=== PATIENT | female | born 1940 | race Caucasian/White ===

== ENCOUNTER 2020-05-07 08:58 | Inpatient (IN) | payer BC, MEDICARE ==
[2020-05-07] MEDS ORDERED: SODIUM CHLORIDE 0.9% 500 ML 500 ML IV STA (09:16)
--- NOTE | 2020-05-07 09:19 | ED ---
General Adult HPI - General Source: patient, family, RN notes reviewed Mode of arrival: wheelchair Limitations: physical limitation <Yosi Conde - Last Filed: 05/07/20 11:45> <Molina Nettles - Last Filed: 05/07/20 11:49> - General Chief complaint: Urogenital Stated complaint: weakness/UTI Time Seen by Provider: 05/07/20 09:06 - History of Present Illness Initial comments: This a 79-year-old female presents emergency Department with chief complaint of generalized weakness, urinary tract infection. Patient states that she's had painful urination last several days. Patient does admit that with that she's had extreme weakness the point where she cannot ambulate by herself. Family room states that she's been steady decline over the last several months in which they discussed doing a PEG tube for nutrition but this was delayed secondary to COVID. Patient has lost over 30 pounds due to not eating or drinking. Patient reports that she had a fever last night took acetaminophen. She denies any chest pain or any shortness of breath. Family states that she had a prior EGD which showed esophageal dysfunction. (Yosi Conde) - Related Data Home Medications Medication Instructions Recorded Confirmed Acetaminophen Tab [Tylenol] 500 mg PO DAILY 08/21/18 07/19/19 Cholecalciferol (Vitamin D3) 5,000 units PO DAILY 07/19/19 07/19/19 [Vitamin D3] Mirtazapine [Remeron] 15 mg PO DAILY 07/19/19 07/19/19 metFORMIN HCL [Glucophage] 500 mg PO DAILY 07/19/19 07/19/19 Allergies Allergy/AdvReac Type Severity Reaction Status Date / Time NSAIDS (Non-Steroidal Allergy Severe Swelling Verified 05/07/20 09:04 Anti-Inflamma clindamycin Allergy Unknown Verified 05/07/20 09:04 codeine Allergy Unknown Verified 05/07/20 09:04 sodium hyaluronate Allergy Unknown Uncoded 05/07/20 09:04 Review of Systems ROS Other: All systems not noted in ROS Statement are negative. <Yosi Conde - Last Filed: 05/07/20 11:45> ROS Other: All systems not noted in ROS Statement are negative. <Molina Nettles - Last Filed: 05/07/20 11:49> ROS Statement: Those systems with pertinent positive or pertinent negative responses have been documented in the HPI. Past Medical History Past Medical History: Diabetes Mellitus, GERD/Reflux, Osteoarthritis (OA) Additional Past Medical History / Comment(s): neuropathy, falls, throat strict ure, scoliosis History of Any Multi-Drug Resistant Organisms: None Reported Past Surgical History: Orthopedic Surgery Additional Past Surgical History / Comment(s): knee surgery, back surgery Past Anesthesia/Blood Transfusion Reactions: No Reported Reaction Past Psychological History: No Psychological Hx Reported Past Alcohol Use History: None Reported Past Drug Use History: None Reported <Yosi Conde - Last Filed: 05/07/20 11:45> General Exam Limitations: physical limitation General appearance: alert, in no apparent distress, cachectic Head exam: Present: atraumatic, normocephalic, normal inspection Eye exam: Present: normal appearance, PERRL, EOMI. Absent: scleral icterus, conjunctival injection, periorbital swelling ENT exam: Present: mucous membranes dry. Absent: normal exam, normal oropharynx, mucous membranes moist Neck exam: Present: normal inspection, full ROM. Absent: tenderness, meningismus, lymphadenopathy Respiratory exam: Present: normal lung sounds bilaterally. Absent: respiratory distress, wheezes, rales, rhonchi, stridor Cardiovascular Exam: Present: regular rate, normal rhythm, normal heart sounds. Absent: systolic murmur, diastolic murmur, rubs, gallop, clicks GI/Abdominal exam: Present: soft, normal bowel sounds. Absent: distended, tenderness, guarding, rebound, rigid Back exam: Absent: CVA tenderness (R), CVA tenderness (L) Neurological exam: Present: alert, oriented X3 Skin exam: Present: warm, dry, intact, normal color. Absent: rash <Yosi Conde - Last Filed: 05/07/20 11:45> Course <Molina Nettles - Last Filed: 05/07/20 11:49> Vital Signs 05/07/20 05/07/20 05/07/20 08:59 10:05 11:00 Temperature 97.8 F Pulse Rate 76 66 62 Respiratory 18 18 18 Rate Blood Pressure 126/78 129/67 112/62 O2 Sat by Pulse 97 97 96 Oximetry - Reevaluation(s) Reevaluation #1: 05/07/20 11:48 PA supervision: I did personally evaluate this patient/case patient did present with complaints of generalized weakness and dysuria. Suspicious for UTI. The patient initial workup over the show evidence of dehydration no definite UTI. Patient will be admitted for inpatient treatment she is demonstrating evidence of failure to thrive as an adult. I do agree with the assessment and plan. (Molina Nettles) EKG Findings - EKG Comments: EKG Findings:: EKG performed at 9:19 normal sinus rhythm rate of 78 ME 168 QRS 70 QTC/QTC 392/423 - EKG Results: EKG: interpreted by ERMD <Yosi Conde - Last Filed: 05/07/20 11:45> Medical Decision Making - Lab Data Result diagrams: 05/07/20 09:39 05/07/20 09:39 <Yosi Conde - Last Filed: 05/07/20 11:45> - Lab Data Result diagrams: 05/07/20 09:39 05/07/20 09:39 <Molina Nettles - Last Filed: 05/07/20 11:49> - Medical Decision Making 79-year-old male with family for weakness, concerns for UTI dehydration. Patient is cachectic, or 40 pounds weight loss and decreased oral intake. Patient case discussed with some physician patient will be admitted for placement, evaluation of her PEG tube for nutrition (Yosi Conde) - Lab Data Lab Results 05/07/20 05/07/20 05/07/20 Range/Units 09:39 09:39 09:39 WBC 6.9 (3.8-10.6) k/uL RBC 3.99 (3.80-5.40) m/uL Hgb 12.8 (11.4-16.0) gm/dL Hct 37.3 (34.0-46.0) % MCV 93.4 (80.0-100.0) fL MCH 32.1 (25.0-35.0) pg MCHC 34.3 (31.0-37.0) g/dL RDW 13.1 (11.5-15.5) % Plt Count 201 (150-450) k/uL Neutrophils % 75 % Lymphocytes % 20 % Monocytes % 4 % Eosinophils % 0 % Basophils % 0 % Neutrophils # 5.1 (1.3-7.7) k/uL Lymphocytes # 1.4 (1.0-4.8) k/uL Monocytes # 0.3 (0-1.0) k/uL Eosinophils # 0.0 (0-0.7) k/uL Basophils # 0.0 (0-0.2) k/uL PT 9.9 (9.0-12.0) sec INR 0.9 (<1.2) APTT 24.1 (22.0-30.0) sec Sodium 131 L (137-145) mmol/L Potassium 3.7 (3.5-5.1) mmol/L Chloride 93 L (98-107) mmol/L Carbon Dioxide 31 H (22-30) mmol/L Anion Gap 7 mmol/L BUN 16 (7-17) mg/dL Creatinine 0.25 L (0.52-1.04) mg/dL Est GFR (CKD-EPI)AfAm >90 (>60 ml/min/1.73 sqM) Est GFR (CKD-EPI)NonAf >90 (>60 ml/min/1.73 sqM) Glucose 112 H (74-99) mg/dL Plasma Lactic Acid Angel (0.7-2.0) mmol/L Calcium 9.2 (8.4-10.2) mg/dL Phosphorus 3.7 (2.5-4.5) mg/dL Magnesium 1.9 (1.6-2.3) mg/dL Total Bilirubin 0.5 (0.2-1.3) mg/dL AST 27 (14-36) U/L ALT 22 (4-34) U/L Alkaline Phosphatase 55 (38-126) U/L Creatine Kinase 86 (30-135) U/L Troponin I (0.000-0.034) ng/mL Total Protein 6.7 (6.3-8.2) g/dL Albumin 4.1 (3.5-5.0) g/dL Urine Color Urine Appearance (Clear) Urine pH (5.0-8.0) Ur Specific [place] (1.001-1.035) Urine Protein (Negative) Urine Glucose (UA) (Negative) Urine Ketones (Negative) Urine Blood (Negative) Urine Nitrite (Negative) Urine Bilirubin (Negative) Urine Urobilinogen (<2.0) mg/dL Ur Leukocyte Esterase (Negative) 07/28/20 07/28/20 07/28/20 Range/Units 09:39 09:39 09:49 WBC (3.8-10.6) k/uL RBC (3.80-5.40) m/uL Hgb (11.4-16.0) gm/dL Hct (34.0-46.0) % MCV (80.0-100.0) fL MCH (25.0-35.0) pg MCHC (31.0-37.0) g/dL RDW (11.5-15.5) % Plt Count (150-450) k/uL Neutrophils % % Lymphocytes % % Monocytes % % Eosinophils % % Basophils % % Neutrophils # (1.3-7.7) k/uL Lymphocytes # (1.0-4.8) k/uL Monocytes # (0-1.0) k/uL Eosinophils # (0-0.7) k/uL Basophils # (0-0.2) k/uL PT (9.0-12.0) sec INR (<1.2) APTT (22.0-30.0) sec Sodium (137-145) mmol/L Potassium (3.5-5.1) mmol/L Chloride (98-107) mmol/L Carbon Dioxide (22-30) mmol/L Anion Gap mmol/L BUN (7-17) mg/dL Creatinine (0.52-1.04) mg/dL Est GFR (CKD-EPI)AfAm (>60 ml/min/1.73 sqM) Est GFR (CKD-EPI)NonAf (>60 ml/min/1.73 sqM) Glucose (74-99) mg/dL Plasma Lactic Acid Angel 0.8 (0.7-2.0) mmol/L Calcium (8.4-10.2) mg/dL Phosphorus (2.5-4.5) mg/dL Magnesium (1.6-2.3) mg/dL Total Bilirubin (0.2-1.3) mg/dL AST (14-36) U/L ALT (4-34) U/L Alkaline Phosphatase (38-126) U/L Creatine Kinase (30-135) U/L Troponin I <0.012 (0.000-0.034) ng/mL Total Protein (6.3-8.2) g/dL Albumin (3.5-5.0) g/dL Urine Color Yellow Urine Appearance Clear (Clear) Urine pH 6.5 (5.0-8.0) Ur Specific [place] 1.015 (1.001-1.035) Urine Protein Negative (Negative) Urine Glucose (UA) Negative (Negative) Urine Ketones Negative (Negative) Urine Blood Negative (Negative) Urine Nitrite Negative (Negative) Urine Bilirubin Negative (Negative) Urine Urobilinogen <2.0 (<2.0) mg/dL Ur Leukocyte Esterase Negative (Negative) Disposition <Yosi Conde - Last Filed: 05/07/20 11:45> <Molina Nettles - Last Filed: 05/07/20 11:49> Clinical Impression: Failure to thrive, Cachectic, Dehydration, Esophageal dysfunction Disposition: ADMITTED IP TO THIS [facility] Condition: Fair Referrals: Nonstaff,Physician [Primary Care Provider] - 1-2 days
[2020-05-07 09:55] LABS: Basophils % (A) 0 %; Eosinophils % (A) 0 %; HCT 37.3 % (34.0-46.0); HGB 12.8 gm/dL (11.4-16.0); Lymphocytes # (A) 1.4 k/uL (1.0-4.8); Lymphocytes % (A) 20 %; MCH 32.1 pg (25.0-35.0); MCHC 34.3 g/dL (31.0-37.0); MCV 93.4 fL (80.0-100.0); Mean Platelet Volume 7.3; Monocytes # (A) 0.3 k/uL (0-1.0); Monocytes % (A) 4 %; Neutrophils # (A) 5.1 k/uL (1.3-7.7); Neutrophils % (A) 75 %; Platelet Count 201 k/uL (150-450); RBC 3.99 m/uL (3.80-5.40); RDW 13.1 % (11.5-15.5); WBC 6.9 k/uL (3.8-10.6)
[2020-05-07 10:09] LABS: INR 0.9 (<1.2); Partial Thromboplastin Time 24.1 sec (22.0-30.0); Prothrombin Time 9.9 sec (9.0-12.0)
--- NOTE | 2020-05-07 10:09 | XR ---
EXAMINATION TYPE: XR chest 2V DATE OF EXAM: 05/07/2020 COMPARISON: 08/23/2019 HISTORY: Shortness of breath TECHNIQUE: Frontal and lateral views of the chest are obtained. FINDINGS: Scattered senescent parenchymal changes noted. Hyperinflation compatible with COPD. No evidence for infiltrate. No evidence for atelectasis. Heart size is stable. Mediastinal structures are stable and grossly unremarkable. No evidence for hilar prominence. Degenerative changes dorsal spine. IMPRESSION: 1. No evidence for acute pulmonary disease.
[2020-05-07 10:15] LABS: ALT 22 U/L (4-34); AST 27 U/L (14-36); African American GFR (CKD) >90 (>60 ml/min/1.73 sqM); Albumin 4.1 g/dL (3.5-5.0); Alkaline Phosphatase 55 U/L (38-126); Anion Gap 7 mmol/L; Blood Urea Nitrogen 16 mg/dL (7-17); Calcium 9.2 mg/dL (8.4-10.2); Carbon Dioxide 31 mmol/L (22-30); Chloride 93 mmol/L (98-107); Creatine Kinase 86 U/L (30-135); Glucose 112 mg/dL (74-99); Magnesium 1.9 mg/dL (1.6-2.3); Non-African American GFR(CKD) >90 (>60 ml/min/1.73 sqM); Phosphorus 3.7 mg/dL (2.5-4.5); Potassium 3.7 mmol/L (3.5-5.1); Sodium 131 mmol/L (137-145); Total Bilirubin 0.5 mg/dL (0.2-1.3); Total Protein 6.7 g/dL (6.3-8.2)
[2020-05-07 10:31] LABS: Appearance,Urine Clear (Clear); Bilirubin,Urine Negative (Negative); Blood,Urine Negative (Negative); Color,Urine Yellow; Glucose,Urine (UA) Negative (Negative); Ketones,Urine Negative (Negative); Leukocyte Esterase,Urine Negative (Negative); Nitrite,Urine Negative (Negative); PH, Urine 6.5 (5.0-8.0); Protein,Urine Negative (Negative); Specific Gravity,Urine 1.015 (1.001-1.035); Urobilinogen,Urine <2.0 mg/dL (<2.0)
[2020-05-07] MEDS ORDERED: NALOXONE 0.4 MG/ML 1 ML VIAL IV PRN (11:48)
[2020-05-07] MEDS: SODIUM CHLORIDE 0.9% 1,000 ML IV SCH (14:13)
--- NOTE | 2020-05-07 17:48 | P.HPIM ---
History of Present Illness H&P Date: 05/07/20 Chief Complaint: Dysuria, generalized weakness 79-year-old female with PMH of diabetes mellitus, throat stricture? Presents to the ED for dysuria. Patient reports 3-4 days of burning with urination. Family also reports concerns regarding her nutritional status. Patient reports undergoing EGD under Dr. Moreno in July which showed strictures in her throat? Patient's nutritional status has been declining since her diagnosis. She was scheduled for PEG Placement in December which was delayed due to COVID. Patient denies any headache, lower extremity edema, nausea or vomiting, fever or chills, chest pain, shortness of breath, palpitations, changes in urination or bowel habits. Patient reports a cough that is chronic in nature productive of white mucus. In the ED, her vital signs are stable. CBC was unremarkable. Coagulation panel was unremarkable. CMP showed sodium 131, chloride of 93, bicarbonate of 31 and creatinine of 0.25, glucose of 112. Troponin was less than 0.012, EKG showing normal sinus rhythm. Urinalysis was negative. Chest x- ray showed no acute disease. Patient reports living alone at [facility] in [facility] and is able to take care of her ADLs and IADLs. She ambulates with the aid of a walker. Patient is admitted for failure to thrive. Review of Systems Pertinent positives and negatives as discussed in HPI, a complete review of systems was performed and all other systems are negative. Past Medical History Past Medical History: Diabetes Mellitus, GERD/Reflux, Osteoarthritis (OA) Additional Past Medical History / Comment(s): neuropathy, falls, throat stricture, scoliosis History of Any Multi-Drug Resistant Organisms: None Reported Past Surgical History: Orthopedic Surgery Additional Past Surgical History / Comment(s): knee surgery, back surgery Past Anesthesia/Blood Transfusion Reactions: No Reported Reaction Past Psychological History: No Psychological Hx Reported Smoking Status: Never smoker Past Alcohol Use History: None Reported Past Drug Use History: None Reported Medications and Allergies Home Medications Medication Instructions Recorded Confirmed Type Acetaminophen Tab [Tylenol] 500 mg PO Q6H PRN 08/21/18 05/07/20 History Mirtazapine [Remeron] 7.5 mg PO HS 07/19/19 05/07/20 History Allergies Allergy/AdvReac Type Severity Reaction Status Date / Time NSAIDS (Non-Steroidal Allergy Severe Swelling Verified 05/07/20 12:01 Anti-Inflamma clindamycin Allergy Unknown Verified 05/07/20 12:01 codeine Allergy Unknown Verified 05/07/20 12:01 sodium hyaluronate Allergy Unknown Uncoded 05/07/20 12:01 Physical Exam Vitals: Vital Signs Temp Pulse Pulse Resp BP BP Pulse Ox 05/07/20 15:00 67 16 163/77 90 L 05/07/20 14:13 70 18 05/07/20 12:42 68 18 131/68 95 05/07/20 11:00 62 18 112/62 96 05/07/20 10:05 66 18 129/67 97 05/07/20 08:59 97.8 F 76 18 126/78 97 Intake and Output 05/07/20 05/07/20 05/07/20 06:59 14:59 22:59 Intake Total 890 Balance 890 Intake: Intake, IV Titration 650 Amount Sodium Chloride 0.9% 1, 150 000 ml @ 75 mls/hr IV . [id number] BENNY Rx#:[id number] Sodium Chloride 0.9% 500 500 ml 500 ml @ 999 mls/hr IV .Q31M STA Rx#:[id number] Oral 240 Other: Voiding Method Bedpan # Voids 1 1 Weight 40.823 kg General: [non toxic], [no distress, cachectic], [appears at stated age] Derm: [warm], [dry] Head: [atraumatic], [normocephalic], [symmetric] Eyes: [EOMI], [no lid lag], [anicteric sclera] Mouth: [no lip lesion], [mucus membranes moist] Cardiovascular: [S1S2 reg], [no murmur], [positive DP pulse bilateral], Lungs: [CTA bilateral], [no rhonchi, no rales] , [no accessory muscle use] Abdominal: [soft], [ nontender to palpation], [no guarding], [no appreciable organomegaly] Ext: [no gross muscle atrophy], [no edema], [no contractures] Neuro: [ CN II-XI grossly intact], [3 out of 5 strength bilateral lower extremity, 5 out of 5 throughout otherwise, sensation intact to touch] Psych: [Alert], [oriented], [appropriate affect] Results CBC & Chem 7: 05/07/20 09:39 05/07/20 09:39 Labs: Abnormal Lab Results - Last 24 Hours (Table) 05/07/20 Range/Units 09:39 Sodium 131 L (137-145) mmol/L Chloride 93 L (98-107) mmol/L Carbon Dioxide 31 H (22-30) mmol/L Creatinine 0.25 L (0.52-1.04) mg/dL Glucose 112 H (74-99) mg/dL Thrombosis Risk Factor Assmnt - Choose All That Apply Each Risk Factor Represents 3 Points: Age 75 years or older Thrombosis Risk Factor Assessment Total Risk Factor Score: 3 Thrombosis Risk Factor Assessment Level: Moderate Risk Assessment and Plan Assessment: Failure to thrive secondary to dysphagia Dysuria Diabetes mellitus Hyponatremia Hypochloremic metabolic alkalosis Patient reports generalized weakness that is progressively getting worse due to her nutritional status. Plans: Consult GI for possible PEG tube placement. Follow PT and OT recommendations. Start mirtazapine for appetite stimulant. Consult dietitian. Urinalysis is negative. Plans: Repeat UA tomorrow morning. [id number] glucose 112. Plans: Insulin sliding scale. Regular Accu-Cheks. Hypoglycemic precautions. Likely due to dehydration. Plans: Normal saline at 75 mL per hour. Repeat BMP tomorrow morning. Management as above. DVT prophylaxis: [Heparin] Discussed with: [Patient and daughter] Anticipated discharge: [2-3 days] Anticipated discharge place: [Home versus [facility]] A total of [45] minutes was spent on the care of this complex patient more than 50% of the time was spent in counseling and care coordination. Patient would like to be no code but is open to intubation if necessary. Patient and her daughter Mirna decision maker if she can't make decisions for herself. [Patient admitted for failure to thrive secondary to her dysphagia and nutritional status. GI will be consulted for possible PEG tube placement. Patient is pending clinical improvement. Likely DC in 2-3 days.]
[2020-05-07] MEDS: ACETAMINOPHEN TAB 325 MG TAB PO PRN (21:18)
[2020-05-07] MEDS: HEPARIN SODIUM,PORCINE 5,000 UNIT/ML 1 ML VIAL SQ SCH (21:18)
[2020-05-07] MEDS: MIRTAZAPINE 15 MG TAB PO SCH (21:19)
[2020-05-07] MEDS: INSULIN ASPART (NovoLOG) 100 UNIT/ML VIAL SQ SCH (21:20)
[2020-05-07 21:22] LABS: Glucose,Whole Blood 113 mg/dL (75-99)
[2020-05-08] MEDS: SODIUM CHLORIDE 0.9% 1,000 ML IV SCH ×2 (06:39→13:33)
[2020-05-08 07:12] LABS: Glucose,Whole Blood 96 mg/dL (75-99)
[2020-05-08] MEDS: INSULIN ASPART (NovoLOG) 100 UNIT/ML VIAL SQ SCH ×4 (07:20→20:30)
[2020-05-08 07:40] LABS: Basophils % (A) 1 %; Eosinophils % (A) 1 %; HGB 12.4 gm/dL (11.4-16.0); Lymphocytes # (A) 1.5 k/uL (1.0-4.8); Lymphocytes % (A) 48 %; MCHC 32.6 g/dL (31.0-37.0); MCV 95.2 fL (80.0-100.0); Mean Platelet Volume 7.3; Monocytes # (A) 0.2 k/uL (0-1.0); Monocytes % (A) 7 %; Neutrophils # (A) 1.3 k/uL (1.3-7.7); Neutrophils % (A) 41 %; Platelet Count 182 k/uL (150-450); RDW 12.9 % (11.5-15.5); WBC 3.2 k/uL (3.8-10.6)
[2020-05-08 08:01] LABS: Appearance,Urine Clear (Clear); Color,Urine Colorless; Protein,Urine Negative (Negative); Specific Gravity,Urine 1.005 (1.001-1.035)
[2020-05-08 08:02] LABS: Bilirubin,Urine Negative (Negative); Blood,Urine Negative (Negative); Glucose,Urine (UA) Negative (Negative); Ketones,Urine Negative (Negative); Leukocyte Esterase,Urine Negative (Negative); Nitrite,Urine Negative (Negative); Urobilinogen,Urine <2.0 mg/dL (<2.0)
[2020-05-08 08:09] LABS: ALT 20 U/L (4-34); AST 28 U/L (14-36); African American GFR (CKD) >90 (>60 ml/min/1.73 sqM); Albumin 3.5 g/dL (3.5-5.0); Alkaline Phosphatase 46 U/L (38-126); Anion Gap 5 mmol/L; Blood Urea Nitrogen 8 mg/dL (7-17); Calcium 8.6 mg/dL (8.4-10.2); Carbon Dioxide 28 mmol/L (22-30); Chloride 99 mmol/L (98-107); Glucose 89 mg/dL (74-99); Non-African American GFR(CKD) >90 (>60 ml/min/1.73 sqM); Potassium 4.2 mmol/L (3.5-5.1); Sodium 132 mmol/L (137-145); Total Bilirubin 0.5 mg/dL (0.2-1.3); Total Protein 6.1 g/dL (6.3-8.2)
[2020-05-08] MEDS: HEPARIN SODIUM,PORCINE 5,000 UNIT/ML 1 ML VIAL SQ SCH ×2 (08:28→20:29)
--- NOTE | 2020-05-08 09:24 | CDI ---
Documentation Clarification Form Date: 05/08/2020 08:55:53 AM From: Chelo Interiano RN, CCDS Admit Date: 05/07/2020 11:47:00 AM Patient Name: Darcie Lebron Visit Number: [id number] ATTENTION: The Clinical Documentation Specialists (CDI) and [facility] Coding Staff appreciate your assistance in clarifying documentation. Please respond to the clarification below the line at the bottom and electronically sign. The CDI & [facility] Coding staff will review the response and follow-up if needed. Please note: Queries are made part of the Legal Health Record. If you have any questions, please contact the author of this message via ITS. Dr. Mary Willett Patient has been admitted with a low BMI, failure to thrive, and dehydration with a consult for Peg tube placement. Please prove further clinical specificity to accurately reflect this patient's SOI/ROM. History/Risk Factors: Dysuria, Diabetes mellitus, Hyponatremia, Hypochloremic metabolic alkalosis, neuropathy, falls, throat stricture, scoliosis Clinical Indicators: 05/07 H&P: Cachectic Failure to thrive secondary to dysphagia Patient reports generalized weakness that is progressively getting worse due to her nutritional status. Plans: Consult GI for possible PEG tube placement. Patient admitted for failure to thrive secondary to her dysphagia and nutritional status.GI will be consulted for possible PEG tube placement. 05/07-05/08 Labs: NA+ 131/132, Total Protein 6.7/6.1, Albumin 4.1/.35 Current BMI: 15.9 Treatment: Dietary Consult: Placed 05/07, not yet completed Supplements: Dietary on consult- Surgery on consult for peg tube placement for feedings Lab monitoring: AM daily In your professional opinion, can you please clarify if these findings signify one of the following conditions? Mild Protein-Calorie Malnutrition Moderate Protein-Calorie Malnutrition Severe Protein-Calorie Malnutrition Other condition, please specify Unable to determine (Last Revision: April 2019) severe MTDD
[2020-05-08 10:57] LABS: Glucose,Whole Blood 155 mg/dL (75-99)
--- NOTE | 2020-05-08 13:56 | P.PN ---
Subjective Progress Note Date: 05/08/20 Principal diagnosis: Generalized weakness Patient was seen and examined. No acute events overnight. Patient reports improvement in her dysuria and abdominal discomfort. Patient states that she had a small amount this morning for breakfast she denies any chest pain, shortness breath or palpitations. No nausea or vomiting. No fever or chills. Objective - Vital Signs Vital signs: Vital Signs Temp 97.6 F 05/08/20 12:14 Pulse 63 05/08/20 12:14 Resp 16 05/08/20 12:14 BP 126/73 05/08/20 12:14 Pulse Ox 96 05/08/20 12:14 Intake & Output 05/07/20 05/08/20 05/08/20 18:59 06:59 18:59 Intake Total 890 240 Balance 890 240 Weight 40.823 kg Intake: Intake, IV Titration 650 Amount Sodium Chloride 0.9% 1, 150 000 ml @ 75 mls/hr IV . [id number] BENNY Rx#:[id number] Sodium Chloride 0.9% 500 500 ml 500 ml @ 999 mls/hr IV .Q31M STA Rx#:[id number] Oral 240 240 Other: Voiding Method Bedpan Bedpan Bedpan # Voids 1 1 1 - Exam General: [non toxic], [no distress, cachectic], [appears at stated age] Derm: [warm], [dry] Head: [atraumatic], [normocephalic], [symmetric] Eyes: [EOMI], [no lid lag], [anicteric sclera] Mouth: [no lip lesion], [mucus membranes moist] Cardiovascular: [S1S2 reg], [no murmur], [positive DP pulse bilateral], Lungs: [CTA bilateral], [no rhonchi, no rales] , [no accessory muscle use] Abdominal: [soft], [ nontender to palpation], [no guarding], [no appreciable organomegaly] Ext: [no gross muscle atrophy], [no edema], [no contractures] Neuro: [ CN II-XI grossly intact], [3 out of 5 strength bilateral lower extremity, 5 out of 5 throughout otherwise, sensation intact to touch] Psych: [Alert], [oriented], [appropriate affect] - Labs CBC & Chem 7: 05/08/20 07:04 05/08/20 07:04 Labs: Abnormal Lab Results - Last 24 Hours (Table) 05/07/20 05/08/20 05/08/20 Range/Units 21:12 07:04 07:04 WBC 3.2 L (3.8-10.6) k/uL Sodium 132 L (137-145) mmol/L Creatinine 0.18 L (0.52-1.04) mg/dL POC Glucose (mg/dL) 113 H (75-99) mg/dL Total Protein 6.1 L (6.3-8.2) g/dL 05/08/20 Range/Units 10:56 WBC (3.8-10.6) k/uL Sodium (137-145) mmol/L Creatinine (0.52-1.04) mg/dL POC Glucose (mg/dL) 155 H (75-99) mg/dL Total Protein (6.3-8.2) g/dL Assessment and Plan Assessment: Failure to thrive secondary to dysphagia Dysuria Diabetes mellitus Hyponatremia Resolved: Hypochloremic metabolic alkalosis Patient reports generalized weakness that is progressively getting worse due to her nutritional status. Plans: Consult GI for possible PEG tube placement. Follow PT and OT recommendations. Start mirtazapine for appetite stimulant. Consult dietitian. NDD2 diet for now. Aspiration precautions. Speech consult for swallow eval. Urinalysis is negative x 2. Plans: Improving. Will continue to monitor. [id number] glucose 155. Plans: Insulin sliding scale. Regular Accu-Cheks. Hypoglycemic precautions. Likely due to dehydration. Slowly improving. Plans: Normal saline at 75 mL per hour. Repeat BMP tomorrow morning. Patient would like to be no code but is open to intubation if necessary. Patient and her daughter Mirna decision maker if she can't make decisions for herself. [Patient admitted for failure to thrive secondary to her dysphagia and nutritional status. GI will be consulted for possible PEG tube placement on Wednesday if patient agreeable. Patient is pending clinical improvement. Likely DC in 2-3 days.]
[2020-05-08 17:18] LABS: Glucose,Whole Blood 89 mg/dL (75-99)
[2020-05-08 20:02] LABS: Glucose,Whole Blood 137 mg/dL (75-99)
[2020-05-08] MEDS: MIRTAZAPINE 15 MG TAB PO SCH (20:29)
[2020-05-09] MEDS: SODIUM CHLORIDE 0.9% 1,000 ML IV SCH ×2 (03:56→19:49)
[2020-05-09 06:58] LABS: Glucose,Whole Blood 92 mg/dL (75-99)
--- NOTE | 2020-05-09 07:15 | P.CONS ---
History of Present Illness - Reason for Consult Consult date: 05/08/20 Dysphagia Requesting physician: Mary Willett - Chief Complaint Burning with urination - History of Present Illness 79-year-old female with multiple medical comorbidities including diabetes mellitus, osteoarthritis and dysphagia who presented to the hospital due to co mplaints of painful urination. The patient had been reporting 3-4 days of burning with urination prior to presentation. Consult was placed for concerns over poor oral intake and weight loss. Previously the patient had an EGD on 07/27/2019 suggestive of early grade a esophagitis and cricopharyngeal dysphagia. At that time discussion was for possible PEG tube however the patient was unsure if she'll be able to receive the appropriate care that her living facility. She was going to contemplate the PEG tube placement, however because of the breakouts of the novel Calderon virus the patient did not follow- up. She reports trying to eat small frequent meals however has been unable to gain weight and is interested in PEG tube at this time . Review of Systems REVIEW OF SYSTEMS: CONSTITUTIONAL: Denies any fevers, chills, but she does report fatigue and significant weight loss secondary to poor oral intake. CARDIOVASCULAR: Denies any chest pain, palpitations high or low blood pressures RESPIRATORY: Denies any shortness of breath, hemoptysis or cough. GENITOURINARY: Denies any hematuria but does report burning with urination prior to presentation. MUSCULOSKELETAL: No weakness reported. SKIN: Denies any new rashes or lesions, jaundice or pallor. PSYCHIATRIC: Denies any depression or anxiety. NEUROLOGY: Denies headache, denies any new focal deficits. EARS/NOSE/THROAT: No recent hearing change, congestion, nasal discharge or sore throat. EYES: No pain in eyes, discharge or change in vision. GASTROINTESTINAL: As per HPI. Past Medical History Past Medical History: Diabetes Mellitus, GERD/Reflux, Osteoarthritis (OA) Additional Past Medical History / Comment(s): neuropathy, falls, throat stricture, scoliosis History of Any Multi-Drug Resistant Organisms: None Reported Past Surgical History: Orthopedic Surgery Additional Past Surgical History / Comment(s): knee surgery, back surgery Past Anesthesia/Blood Transfusion Reactions: No Reported Reaction Past Psychological History: No Psychological Hx Reported Smoking Status: Never smoker Past Alcohol Use History: None Reported Past Drug Use History: None Reported Additional History: Family history: Reviewed with the patient and noncontributory to current medical presentation. Medications and Allergies Home Medications Medication Instructions Recorded Confirmed Type Acetaminophen Tab [Tylenol] 500 mg PO Q6H PRN 08/21/18 05/07/20 History Mirtazapine [Remeron] 7.5 mg PO HS 07/19/19 05/07/20 History Allergies Allergy/AdvReac Type Severity Reaction Status Date / Time NSAIDS (Non-Steroidal Allergy Severe Swelling Verified 05/07/20 12:01 Anti-Inflamma clindamycin Allergy Unknown Verified 05/07/20 12:01 codeine Allergy Unknown Verified 05/07/20 12:01 sodium hyaluronate Allergy Unknown Uncoded 05/07/20 12:01 Physical Exam Vitals: Vital Signs Temp Pulse Resp BP Pulse Ox 05/08/20 12:14 97.6 F 63 16 126/73 96 05/08/20 08:00 62 18 05/08/20 04:50 97.3 F L 60 18 135/71 94 L 05/07/20 19:33 98.1 F 63 18 120/68 96 05/07/20 16:00 67 16 05/07/20 15:00 67 16 163/77 90 L Intake and Output 05/07/20 05/08/20 05/08/20 22:59 06:59 14:59 Intake Total 1320 Balance 1320 Intake: Intake, IV Titration 600 Amount Sodium Chloride 0.9% 1, 600 000 ml @ 75 mls/hr IV . [id number] [facility] Rx#:[id number] Oral 720 Other: Voiding Method Bedpan Bedpan Bedpan # Voids 1 1 3 On physical examination, patient appears comfortable in no apparent distress. HEAD: Normocephalic, atraumatic. EYES: No scleral icterus. No conjunctival injection. MOUTH: No lesions, tongue midline. NECK: Trachea midline, no gross abnormalities. CHEST: Clear to auscultation with no wheezing or rhonchi appreciated. HEART: Regular rate and rhythm. ABDOMEN: Soft, thin. Bowel sounds are positive. No organomegaly. No guarding or rigidity. EXTREMITIES: No pedal edema. SKIN: No rashes, no jaundice. NEUROLOGIC: Alert and oriented x3. No focal deficits. Results CBC & Chem 7: 05/08/20 07:04 05/08/20 07:04 Labs: Abnormal Lab Results - Last 24 Hours (Table) 05/07/20 05/08/20 05/08/20 Range/Units 21:12 07:04 07:04 WBC 3.2 L (3.8-10.6) k/uL Sodium 132 L (137-145) mmol/L Creatinine 0.18 L (0.52-1.04) mg/dL POC Glucose (mg/dL) 113 H (75-99) mg/dL Total Protein 6.1 L (6.3-8.2) g/dL 05/08/20 Range/Units 10:56 WBC (3.8-10.6) k/uL Sodium (137-145) mmol/L Creatinine (0.52-1.04) mg/dL POC Glucose (mg/dL) 155 H (75-99) mg/dL Total Protein (6.3-8.2) g/dL Chest x-ray: report reviewed (No evidence of acute pulmonary disease on chest x- ray) Assessment and Plan (1) Dysphagia Narrative/Plan: 79-year-old female who presented to the hospital due to burning urination. Previously she had been seen for EGD in 07/2019 at that time patient was felt to have evidence of cricopharyngeal dysphagia. Patient was instructed to eat small frequent meals. However she has continued to report poor oral intake and weight loss and would like to proceed with PEG tube placement as previously discussed. Current Visit: Yes Status: Acute Code(s): R13.10 - DYSPHAGIA, UNSPECIFIED SNOMED Code(s): 69533892 (2) Esophageal dysfunction Current Visit: Yes Status: Acute Code(s): K22.4 - DYSKINESIA OF ESOPHAGUS SNOMED Code(s): 220832527 Plan: Supportive care Okay for diet as tolerated Nothing by mouth after midnight Plan for PEG tube placement tomorrow Antibiotic therapy order preprocedure Await recommendations from speech language pathology Thank you for allowing us to participate in the care of the patient we will continue to follow
[2020-05-09] MEDS: INSULIN ASPART (NovoLOG) 100 UNIT/ML VIAL SQ SCH ×3 (07:48→19:35)
[2020-05-09] MEDS: HEPARIN SODIUM,PORCINE 5,000 UNIT/ML 1 ML VIAL SQ SCH ×2 (09:14→21:03)
[2020-05-09] MEDS ORDERED: bisacodyL 5 MG TABLET.DR PO STA (09:34)
[2020-05-09] MEDS ORDERED: bisacodyL 10 MG SUPP RECTAL STA (09:36)
[2020-05-09] MEDS ORDERED: ceFAZolin 3 GM in SODIUM CHLORIDE 0.9% 100 ML IVPB ONE (10:00)
--- NOTE | 2020-05-09 11:12 | P.PN ---
Objective - Vital Signs Vital signs: Vital Signs Temp 98.0 F 05/09/20 05:00 Pulse 63 05/09/20 05:00 Resp 16 05/09/20 05:00 BP 138/75 05/09/20 05:00 Pulse Ox 96 05/09/20 05:00 Intake & Output 05/08/20 05/09/20 05/09/20 18:59 06:59 18:59 Intake Total 1560 900 Balance 1560 900 Weight 40.823 kg Intake: Intake, IV Titration 600 900 Amount Sodium Chloride 0.9% 1, 600 900 000 ml @ 75 mls/hr IV . [id number] [facility] Rx#:[id number] Oral 960 Other: Voiding Method Bedpan Bedpan # Voids 3 8 1 # Bowel Movements 1 - Labs CBC & Chem 7: 05/08/20 07:04 05/08/20 07:04 Labs: Abnormal Lab Results - Last 24 Hours (Table) 05/08/20 Range/Units 20:01 POC Glucose (mg/dL) 137 H (75-99) mg/dL Assessment and Plan Plan: Failure to thrive secondary to dysphagia: Aspiration precautions. Speech consult for swallow eval, performed. Plan for PEG tube placement tomorrow Dysuria: Resolved. Diabetes mellitus type 2 , continue sliding scale Hyponatremia: Recheck labs, 132 yesterday Hypochloremic metabolic alkalosis, resolved my recheck. Weakness: Appreciate PT/OT Disposition: Pending clinical progression Treatment plan discussed with the patient and her daughter at bedside.
[2020-05-09 11:14] LABS: Glucose,Whole Blood 96 mg/dL (75-99)
[2020-05-09 17:04] LABS: Glucose,Whole Blood 82 mg/dL (75-99)
[2020-05-09] MEDS: MIRTAZAPINE 15 MG TAB PO SCH (21:02)
[2020-05-09 21:08] LABS: Glucose,Whole Blood 74 mg/dL (75-99)
[2020-05-10] MEDS: INSULIN ASPART (NovoLOG) 100 UNIT/ML VIAL SQ SCH ×2 (01:26→11:08)
[2020-05-10 04:29] LABS: Glucose,Whole Blood 62 mg/dL (75-99)
[2020-05-10] MEDS ORDERED: DEXTROSE 50% SYRINGE 50 ML IVP ONE (04:32)
[2020-05-10 04:45] LABS: Glucose,Whole Blood 198 mg/dL (75-99)
[2020-05-10] MEDS: SODIUM CHLORIDE 0.9% 1,000 ML IV SCH (06:29)
--- NOTE | 2020-05-10 07:34 | P.PN ---
Subjective Progress Note Date: 05/09/20 Principal diagnosis: Cricopharyngeal dysphagia Attempted to see the patient, however she was not in her room. Plan is for EGD with PEG tube placement tomorrow for cricopharyngeal dysphagia noted on EGD in 07/2019 with NO stricture noted at that time. Objective - Vital Signs Vital signs: Vital Signs Temp 98 F 05/09/20 14:09 Pulse 95 05/09/20 14:09 Resp 16 05/09/20 14:09 BP 122/72 05/09/20 14:09 Pulse Ox 95 05/09/20 14:09 Intake & Output 05/09/20 05/09/20 05/10/20 06:59 18:59 06:59 Intake Total 900 300 Balance 900 300 Intake: Intake, IV Titration 900 Amount Sodium Chloride 0.9% 1, 900 000 ml @ 75 mls/hr IV . [id number] [facility] Rx#:[id number] Oral 300 Other: Voiding Method Bedpan # Voids 8 1 # Bowel Movements 2 - Labs CBC & Chem 7: 05/08/20 07:04 05/08/20 07:04 Assessment and Plan (1) Dysphagia Narrative/Plan: 79-year-old female who presented to the hospital due to burning urination. Previously she had been seen for EGD in 07/2019 at that time patient was felt to have evidence of cricopharyngeal dysphagia with NO STRICTURE NOTED AT THAT TIME. Patient was instructed to eat small frequent meals. However she has continued to report poor oral intake and weight loss and would like to proceed with PEG tube placement as previously discussed. Current Visit: Yes Status: Acute Code(s): R13.10 - DYSPHAGIA, UNSPECIFIED SNOMED Code(s): 73382870 (2) Esophageal dysfunction Current Visit: Yes Status: Acute Code(s): K22.4 - DYSKINESIA OF ESOPHAGUS SNOMED Code(s): 298490597
[2020-05-10 07:56] LABS: Glucose,Whole Blood 71 mg/dL (75-99)
[2020-05-10 08:30] LABS: Basophils % (A) 0 %; Eosinophils % (A) 1 %; HCT 41.8 % (34.0-46.0); HGB 13.2 gm/dL (11.4-16.0); Lymphocytes % (A) 26 %; MCH 30.4 pg (25.0-35.0); MCHC 31.6 g/dL (31.0-37.0); MCV 96.1 fL (80.0-100.0); Mean Platelet Volume 7.2; Monocytes # (A) 0.3 k/uL (0-1.0); Monocytes % (A) 7 %; Neutrophils # (A) 2.6 k/uL (1.3-7.7); Neutrophils % (A) 64 %; Platelet Count 213 k/uL (150-450); RBC 4.35 m/uL (3.80-5.40)
[2020-05-10] MEDS: DEXTROSE 5%-0.45% NACL 1,000 ML IV SCH ×2 (08:30→22:30)
[2020-05-10] MEDS: HEPARIN SODIUM,PORCINE 5,000 UNIT/ML 1 ML VIAL SQ SCH ×2 (08:40→21:46)
[2020-05-10 09:01] LABS: ALT 18 U/L (4-34); AST 29 U/L (14-36); African American GFR (CKD) >90 (>60 ml/min/1.73 sqM); Albumin 3.8 g/dL (3.5-5.0); Alkaline Phosphatase 63 U/L (38-126); Anion Gap 10 mmol/L; Blood Urea Nitrogen 11 mg/dL (7-17); Carbon Dioxide 23 mmol/L (22-30); Chloride 100 mmol/L (98-107); Glucose 77 mg/dL (74-99); Non-African American GFR(CKD) >90 (>60 ml/min/1.73 sqM); Potassium 3.3 mmol/L (3.5-5.1); Sodium 133 mmol/L (137-145); Total Bilirubin 0.7 mg/dL (0.2-1.3); Total Protein 6.5 g/dL (6.3-8.2)
[2020-05-10 09:32] LABS: Glucose,Whole Blood 99 mg/dL (75-99)
[2020-05-10] MEDS ORDERED: POTASSIUM CHLORIDE 20 MEQ in WATER FOR INJECTION 1 100ML.BAG IVPB STA (10:07)
[2020-05-10 11:49] LABS: Glucose,Whole Blood 91 mg/dL (75-99)
[2020-05-10] MEDS ORDERED: ceFAZolin 1,000 MG VIAL ONE (13:08)
[2020-05-10] MEDS ORDERED: LIDOCAINE 1% INJ 10MG/ML (20 ML MDV) ONE (13:08)
[2020-05-10] MEDS ORDERED: PROPOFOL 10 MG/ML 20 ML VIAL IV ONE (13:08)
[2020-05-10] MEDS ORDERED: LACTATED RINGERS 1,000 ML IV ONE ×2 (13:09)
--- NOTE | 2020-05-10 13:37 | P.PCN ---
Date of Procedure: 05/10/20 Procedure(s) Performed: Brief history: Patient is a 79-year-old pleasant white female with history dysphagia anddyprogressive weight loss for the last 6 months duration. She is hence scheduled for an EGD with PEG tube placement today. Procedure performed: EGD with PEG tube placement Preoperative diagnosis:Dysphagia and progressive weight loss IV sedation by anesthesia Procedure: After informed consent was obtained with the patient as well as the family the patient was brought into the endoscopy unit. IV conscious sedation was administered by anesthesia under continuous monitoring. The Olympus GF 160 video endoscope was inserted into the mouth and esophagus intubated without any difficulty and was gradually advanced to the stomach and duodenum. The bulb and second part of the duodenum was visualized which appeared normal. The scope at this time was withdrawn to the stomach adequately insufflated with air. Adequate transillumination was achieved onto the anterior abdominal wall. At the site of adequate transillumination and maximal finger indentation, on the anterior abdominal wall, this area was sterilely prepped and draped. One percent Xylocaine was infiltrated into the skin and a small incision was made. Trocar and cannula was passed through the incision into the stomach cavity. The trocar was removed. Guidewire was passed through the cannula into the stomach cavity which was held by the snare that was passed through the scope. The guidewire along with the scope was gently withdrawn from the stomach esophagus out of the mouth. A 20-[place] [employer] PEG tube was passed over the guidewire and was gently advanced into the mouth and esophagus and stomach. Wit h gentle traction the guidewire along with the PEG tube was pulled from the anterior abdominal wall until the internal bumper appeared to be in secure position. Repeat EGD was performed and the esophagus intubated without any difficulty and was advanced into the stomach. The internal bumper appeared to be in secure position. The visualized portions of the antrum body cardia and fundus of the stomach appeared normal. The esophagus was carefully examined as the scope was gradually being withdrawn which appeared normal. At this time external bumper was placed on the PEG tube closer to the anterior abdominal wall at 3 cm patti. The patient tolerated the procedure well. Impression: Successful 20-[place] [employer] PEG tube placement as described above. Mild cricopharyngeal dysfunction. Mild gastritis Recommendations: Findings of this examination were discussed with the patient's family. The patient will be started on tube feeds tomorrow. Post-PEG tube orders were written.
[2020-05-10] MEDS: ACETAMINOPHEN TAB 325 MG TAB PO PRN ×2 (16:34→21:45)
[2020-05-10 17:06] LABS: Glucose,Whole Blood 104 mg/dL (75-99)
--- NOTE | 2020-05-10 18:36 | P.PN ---
Subjective Progress Note Date: 05/10/20 (delayed charting seen at 10am) Principal diagnosis: dysphagia Patient is a 79-year-old female with diabetes mellitus not currently requiring treatment, prior esophageal stricture now with cricopharyngeal dysfunction, GERD, and osteoarthritis who presented to the emergency department with complaints of dysuria and poor nutritional status. Initially the patient was scheduled for PEG tube placement in December which was delayed due to Covid. In the ER she underwent an extensive evaluation. She was found to be hyponatremic with a sodium of 131. Chest x-ray showed no acute process. Initial urinalysis was negative. She is admitted for failure to thrive secondary to dysphagia as well as hyponatremia. She was started on Remeron for appetite stimulant dietary was consulted. GI was consulted who recommended placement of a PEG tube. Patient subsequently underwent PEG tube placement on 05/10/2020 without complications. Patient seen and examined at bedside. She reports no nausea or vomiting. She continues to have some difficulty with swallowing. No chest pain or shortness of breath. She is slightly nervous about having to do to proceed. She has been significantly weak and requiring assistance. Objective - Vital Signs Vital signs: Vital Signs Temp 97.9 F 05/10/20 14:03 Pulse 87 05/10/20 14:54 Resp 21 05/10/20 14:03 BP 176/87 05/10/20 14:03 Pulse Ox 96 05/10/20 14:03 Intake & Output 05/09/20 05/10/20 05/10/20 18:59 06:59 18:59 Intake Total 300 900 50 Balance 300 900 50 Weight 40.823 kg Intake: IV 50 Intake, IV Titration 900 Amount Sodium Chloride 0.9% 1, 900 000 ml @ 75 mls/hr IV . [id number] [facility] Rx#:[id number] Oral 300 0 Other: Voiding Method Bedpan Bedside Commode # Voids 1 1 1 # Bowel Movements 2 - Exam General: non toxic, no distress, appears at stated age I'm afraid, cachectic temporal wasting Derm: warm, dry Head: atraumatic, normocephalic, symmetric Eyes: EOMI, no lid lag, anicteric sclera Mouth: no lip lesion, mucus membranes dry Cardiovascular: S1S2 reg, no murmur, positive posterior tibial pulse bilateral, Lungs: CTA bilateral, no rhonchi, no rales , no accessory muscle use Abdominal: soft, nontender to palpation, no guarding, no appreciable organomegaly Ext: no gross muscle atrophy, no edema, no contractures Neuro: CN II-XI grossly intact, no focal neuro deficits Psych: Alert, oriented, appropriate affect - Labs CBC & Chem 7: 05/10/20 07:59 05/10/20 07:59 Labs: Abnormal Lab Results - Last 24 Hours (Table) 05/09/20 05/10/20 05/10/20 Range/Units 21:07 04:24 04:44 Sodium (137-145) mmol/L Potassium (3.5-5.1) mmol/L Creatinine (0.52-1.04) mg/dL POC Glucose (mg/dL) 74 L 62 L 198 H (75-99) mg/dL 05/10/20 05/10/20 05/10/20 Range/Units 07:54 07:59 17:04 Sodium 133 L (137-145) mmol/L Potassium 3.3 L (3.5-5.1) mmol/L Creatinine 0.19 L (0.52-1.04) mg/dL POC Glucose (mg/dL) 71 L 104 H (75-99) mg/dL Assessment and Plan Assessment: Severe protein calorie malnutrition, cachexia, and failure to thrive secondary to cricopharyngeal dysphagia BMI 15.9 - PEG tube placement today -We'll need to be closely monitored for refeeding syndrome - Speech and GI recommendations appreciated -Remeron Hypoglycemia with history of diabetes mellitus -Transition from normal saline to D5 half-normal -Follow blood sugars -No insulin administration GERD -Pepcid Generalized weakness likely secondary to above -PT/OT Chronic: Osteoarthritis Neuropathy DVT prophylaxis: SCDs Discussed with: patient, GI, nursing Anticipated discharge: 2-[address]: home health vs SNF A total of 35 minutes was spent on the care of this complex patient more than 50% of the time was spent in counseling and care coordination.
[2020-05-10] MEDS: MIRTAZAPINE 15 MG TAB PO SCH (21:45)
[2020-05-10 22:27] LABS: Glucose,Whole Blood 112 mg/dL (75-99)
[2020-05-11] MEDS: ACETAMINOPHEN TAB 325 MG TAB PO PRN ×4 (02:34→20:05)
[2020-05-11 07:08] LABS: Glucose,Whole Blood 109 mg/dL (75-99)
[2020-05-11 07:25] LABS: Basophils % (A) 0 %; Eosinophils % (A) 0 %; HCT 34.3 % (34.0-46.0); HGB 11.5 gm/dL (11.4-16.0); Lymphocytes # (A) 1.2 k/uL (1.0-4.8); Lymphocytes % (A) 23 %; MCH 31.4 pg (25.0-35.0); MCHC 33.5 g/dL (31.0-37.0); MCV 93.5 fL (80.0-100.0); Mean Platelet Volume 6.9; Monocytes # (A) 0.3 k/uL (0-1.0); Monocytes % (A) 6 %; Neutrophils # (A) 3.6 k/uL (1.3-7.7); Neutrophils % (A) 70 %; Platelet Count 196 k/uL (150-450); RBC 3.67 m/uL (3.80-5.40); RDW 12.7 % (11.5-15.5); WBC 5.2 k/uL (3.8-10.6)
[2020-05-11 07:32] LABS: ALT 15 U/L (4-34); AST 21 U/L (14-36); African American GFR (CKD) >90 (>60 ml/min/1.73 sqM); Albumin 3.1 g/dL (3.5-5.0); Alkaline Phosphatase 43 U/L (38-126); Anion Gap 4 mmol/L; Blood Urea Nitrogen 8 mg/dL (7-17); Calcium 8.5 mg/dL (8.4-10.2); Carbon Dioxide 30 mmol/L (22-30); Chloride 95 mmol/L (98-107); Glucose 108 mg/dL (74-99); Magnesium 1.3 mg/dL (1.6-2.3); Non-African American GFR(CKD) >90 (>60 ml/min/1.73 sqM); Phosphorus 3.4 mg/dL (2.5-4.5); Potassium 3.3 mmol/L (3.5-5.1); Sodium 129 mmol/L (137-145); Total Bilirubin 0.7 mg/dL (0.2-1.3); Total Protein 5.4 g/dL (6.3-8.2)
[2020-05-11] MEDS: FAMOTIDINE 20 MG TAB PO SCH (08:56)
[2020-05-11] MEDS: MAGNESIUM SULFATE-D5W PMX 1 GM in DEXTROSE/WATER 1 100ML.BAG IVPB SCH ×4 (09:00→12:53)
[2020-05-11] MEDS: POTASSIUM BICARBONATE/CIT AC 20 MEQ TABLET.EFF PEG/G-TUBE SCH ×2 (09:01→10:37)
[2020-05-11] MEDS: HEPARIN SODIUM,PORCINE 5,000 UNIT/ML 1 ML VIAL SQ SCH ×2 (09:02→20:04)
[2020-05-11 12:29] LABS: Glucose,Whole Blood 151 mg/dL (75-99)
--- NOTE | 2020-05-11 12:29 | P.PN ---
Subjective Progress Note Date: 05/11/20 Principal diagnosis: dysphagia Patient is a 79-year-old female with diabetes mellitus not currently requiring treatment, prior esophageal stricture now with cricopharyngeal dysfunction, GERD, and osteoarthritis who presented to the emergency department with complaints of dysuria and poor nutritional status. Initially the patient was scheduled for PEG tube placement in December which was delayed due to Covid. In the ER she underwent an extensive evaluation. She was found to be hyponatremic with a sodium of 131. Chest x-ray showed no acute process. Initial urinalysis was negative. She is admitted for failure to thrive secondary to dysphagia as well as hyponatremia. She was started on Remeron for appetite stimulant dietary was consulted. GI was consulted who recommended placement of a PEG tube. Patient subsequently underwent PEG tube placement on 05/10/2020 without complications. Patient seen and examined at bedside. Patient to start tube feedings today. She denies pain and states that medications helped, no nausea, no chest pain, no shortness of breath. Objective - Vital Signs Vital signs: Vital Signs Temp 97.4 F L 05/11/20 05:00 Pulse 63 05/11/20 05:00 Resp 18 05/11/20 05:00 BP 117/69 05/11/20 05:00 Pulse Ox 95 05/11/20 05:00 Intake & Output 05/10/20 05/11/20 05/11/20 18:59 06:59 18:59 Intake Total 50 1100 Balance 50 1100 Weight 40.823 kg 40.823 kg Intake: IV 50 Intake, IV Titration 900 Amount Dextrose 5%-0.45% NaCl 1, 900 000 ml @ 75 mls/hr IV . [id number] [facility] Rx#:[id number] Oral 200 Other: Voiding Method Bedside Commode Bedside Commode # Voids 1 1 - Exam General: non toxic, no distress, appears at stated age, cachectic temporal w asting Derm: warm, dry Head: atraumatic, normocephalic, symmetric Eyes: EOMI, no lid lag, anicteric sclera Mouth: no lip lesion, mucus membranes dry Cardiovascular: S1S2 reg, no murmur, positive posterior tibial pulse bilateral, Lungs: CTA bilateral, no rhonchi, no rales , no accessory muscle use Abdominal: soft, nontender to palpation, no guarding, no appreciable organomegaly, PEG in place no bleeding no drainage Ext: no gross muscle atrophy, no edema, no contractures Neuro: CN II-XI grossly intact, no focal neuro deficits Psych: Alert, oriented, appropriate affect - Labs CBC & Chem 7: 05/11/20 06:51 05/11/20 06:51 Labs: Abnormal Lab Results - Last 24 Hours (Table) 05/10/20 05/10/20 05/11/20 Range/Units 17:04 22:25 06:51 RBC 3.67 L (3.80-5.40) m/uL Sodium (137-145) mmol/L Potassium (3.5-5.1) mmol/L Chloride (98-107) mmol/L Creatinine (0.52-1.04) mg/dL Glucose (74-99) mg/dL POC Glucose (mg/dL) 104 H 112 H (75-99) mg/dL Magnesium (1.6-2.3) mg/dL Total Protein (6.3-8.2) g/dL Albumin (3.5-5.0) g/dL 05/11/20 05/11/20 Range/Units 06:51 07:05 RBC (3.80-5.40) m/uL Sodium 129 L (137-145) mmol/L Potassium 3.3 L (3.5-5.1) mmol/L Chloride 95 L (98-107) mmol/L Creatinine 0.18 L (0.52-1.04) mg/dL Glucose 108 H (74-99) mg/dL POC Glucose (mg/dL) 109 H (75-99) mg/dL Magnesium 1.3 L (1.6-2.3) mg/dL Total Protein 5.4 L (6.3-8.2) g/dL Albumin 3.1 L (3.5-5.0) g/dL Assessment and Plan Assessment: Severe protein calorie malnutrition, cachexia, and failure to thrive secondary to cricopharyngeal dysphagia BMI 15.9 -s/p PEG tube placement, okay to start tub feedings, repeat labs at 1800 -We'll need to be closely monitored for refeeding syndrome -Speech and GI recommendations appreciated -Remeron Hypoglycemia with history of diabetes mellitus -off fluids, start tube feedings -Follow blood sugars -No insulin administration Hyponatremia - due to poor solute intake and 0.45 NS needed to use with D5 - stop fluids - start tube feedings - repeat at 1800 Hypokalemia and hypomagnesemia - replace and recheck GERD -Pepcid Generalized weakness likely secondary to above -PT/OT Chronic: Osteoarthritis Neuropathy Offered to call daughter, patient declined and stated that daughter will visit later today. DVT prophylaxis: SCDs Discussed with: patient, GI, nursing Anticipated discharge: 2-[address]: home health vs SNF A total of 35 minutes was spent on the care of this complex patient more than 50% of the time was spent in counseling and care coordination.
[2020-05-11 17:13] LABS: Glucose,Whole Blood 154 mg/dL (75-99)
[2020-05-11 18:42] LABS: ALT 16 U/L (4-34); AST 22 U/L (14-36); African American GFR (CKD) >90 (>60 ml/min/1.73 sqM); Albumin 3.3 g/dL (3.5-5.0); Alkaline Phosphatase 55 U/L (38-126); Anion Gap 5 mmol/L; Blood Urea Nitrogen 7 mg/dL (7-17); Calcium 8.3 mg/dL (8.4-10.2); Carbon Dioxide 31 mmol/L (22-30); Chloride 90 mmol/L (98-107); Glucose 143 mg/dL (74-99); Magnesium 2.4 mg/dL (1.6-2.3); Non-African American GFR(CKD) >90 (>60 ml/min/1.73 sqM); Phosphorus 2.9 mg/dL (2.5-4.5); Potassium 4.1 mmol/L (3.5-5.1); Sodium 126 mmol/L (137-145); Total Bilirubin 0.4 mg/dL (0.2-1.3); Total Protein 5.7 g/dL (6.3-8.2)
[2020-05-11] MEDS: MIRTAZAPINE 15 MG TAB PO SCH (20:04)
[2020-05-11 20:27] LABS: Glucose,Whole Blood 181 mg/dL (75-99)
[2020-05-11] MEDS: INSULIN ASPART (NovoLOG) 100 UNIT/ML VIAL SQ SCH (20:42)
--- NOTE | 2020-05-11 21:17 | PN ---
PROGRESS NOTE DATE OF DICTATION: May 11, 2020 Patient is a 79-year-old pleasant white female admitted to the hospital with generalized weakness, decreased oral intake, dysphagia. She underwent an upper endoscopy with a PEG tube placement yesterday. She is doing well today. She denies any abdominal pain. PHYSICAL EXAMINATION: Appears comfortable. VITAL SIGNS: Stable. Blood pressure is 129/72, pulse rate 64, temperature 98.4. HEENT examination unremarkable. Conjunctivae pink. Sclerae anicteric. Oral cavity no lesions. NECK: No JVD or lymph node enlargement. CHEST was clear to auscultation. HEART: Regular rate and rhythm. ABDOMEN was soft. PEG tube appears in good position. PEG site appears normal. ABDOMEN was benign. NEUROLOGIC: Alert and oriented x3. No focal deficits. LABS: From today: Sodium is 126, potassium 4.1, BUN 7, creatinine 0.16. IMPRESSION: Dysphagia/poor oral intake with progressive weight loss, status post EGD with PEG tube placement yesterday. Patient doing well. RECOMMENDATIONS: Use the PEG tube as per dietary recommendations, start at 10 mL an hour and gradually increase the rate as tolerated. Thank you for this consultation. We will sign off. Please call us if needed. MMODL / IJN: [id number] /
[2020-05-12 00:06] LABS: Glucose,Whole Blood 117 mg/dL (75-99)
[2020-05-12] MEDS: INSULIN ASPART (NovoLOG) 100 UNIT/ML VIAL SQ SCH ×4 (00:12→18:20)
[2020-05-12] MEDS: ACETAMINOPHEN TAB 325 MG TAB PO PRN ×4 (00:16→21:01)
[2020-05-12 05:42] LABS: Glucose,Whole Blood 129 mg/dL (75-99)
[2020-05-12 07:37] LABS: Basophils % (A) 0 %; Eosinophils % (A) 0 %; HCT 37.5 % (34.0-46.0); HGB 12.3 gm/dL (11.4-16.0); Lymphocytes # (A) 0.9 k/uL (1.0-4.8); Lymphocytes % (A) 14 %; MCH 30.6 pg (25.0-35.0); MCHC 32.7 g/dL (31.0-37.0); MCV 93.6 fL (80.0-100.0); Mean Platelet Volume 7.5; Monocytes # (A) 0.3 k/uL (0-1.0); Monocytes % (A) 4 %; Neutrophils # (A) 4.9 k/uL (1.3-7.7); Neutrophils % (A) 81 %; Platelet Count 193 k/uL (150-450); RBC 4.01 m/uL (3.80-5.40); RDW 12.8 % (11.5-15.5); WBC 6.1 k/uL (3.8-10.6)
[2020-05-12 07:47] LABS: ALT 15 U/L (4-34); AST 21 U/L (14-36); African American GFR (CKD) >90 (>60 ml/min/1.73 sqM); Albumin 3.1 g/dL (3.5-5.0); Alkaline Phosphatase 48 U/L (38-126); Anion Gap 5 mmol/L; Blood Urea Nitrogen 8 mg/dL (7-17); Calcium 8.1 mg/dL (8.4-10.2); Carbon Dioxide 33 mmol/L (22-30); Chloride 90 mmol/L (98-107); Glucose 147 mg/dL (74-99); Magnesium 1.7 mg/dL (1.6-2.3); Non-African American GFR(CKD) >90 (>60 ml/min/1.73 sqM); Phosphorus 3.2 mg/dL (2.5-4.5); Potassium 3.8 mmol/L (3.5-5.1); Sodium 128 mmol/L (137-145); Total Bilirubin 0.5 mg/dL (0.2-1.3); Total Protein 5.5 g/dL (6.3-8.2)
[2020-05-12] MEDS: HEPARIN SODIUM,PORCINE 5,000 UNIT/ML 1 ML VIAL SQ SCH ×2 (08:24→21:01)
[2020-05-12] MEDS: FAMOTIDINE 20 MG TAB PO SCH (08:24)
[2020-05-12] MEDS ORDERED: MAGNESIUM OXIDE 400 MG TAB PO STA (11:52)
--- NOTE | 2020-05-12 11:54 | P.PN ---
Subjective Progress Note Date: 05/12/20 (delayed charting seen at 0830) Principal diagnosis: dysphagia Patient is a 79-year-old female with diabetes mellitus not currently requiring treatment, prior esophageal stricture now with cricopharyngeal dysfunction, GERD, and osteoarthritis who presented to the emergency department with complaints of dysuria and poor nutritional status. Initially the patient was scheduled for PEG tube placement in December which was delayed due to Covid. In the ER she underwent an extensive evaluation. She was found to be hyponatremic with a sodium of 131. Chest x-ray showed no acute process. Initial urinalysis was negative. She is admitted for failure to thrive secondary to dysphagia as well as hyponatremia. She was started on Remeron for appetite stimulant dietary was consulted. GI was consulted who recommended placement of a PEG tube. Patient subsequently underwent PEG tube placement on 05/10/2020 without complications. Tube feedings started on 05/11 and slowly inc reased. Patient seen and examined at bedside. She is having some pain at the PEG insertion site. No nausea, no full feeling, no diarrhea, no chest pain, no shortness of breath. Objective - Vital Signs Vital signs: Vital Signs Temp 97.5 F L 05/12/20 05:00 Pulse 64 05/12/20 05:00 Resp 18 05/12/20 05:00 BP 150/81 05/12/20 05:00 Pulse Ox 92 L 05/12/20 05:00 Intake & Output 05/11/20 05/12/20 05/12/20 18:59 06:59 18:59 Intake Total 40 1080 Balance 40 1080 Weight 41.419 kg 42.638 kg Intake: Intake, IV Titration 900 Amount Dextrose 5%-0.45% NaCl 1, 900 000 ml @ 75 mls/hr IV . [id number] [facility] Rx#:[id number] Oral 0 Tube Feeding 40 180 Other: Voiding Method Bedside Commode Bedside Commode # Voids 1 6 - Exam General: non toxic, no distress, appears at stated age, cachectic temporal wasting Derm: warm, dry Head: atraumatic, normocephalic, symmetric Eyes: EOMI, no lid lag, anicteric sclera Mouth: no lip lesion, mucus membranes dry Cardiovascular: S1S2 reg, no murmur, positive posterior tibial pulse bilateral, Lungs: Decreased bs bilateral, no rhonchi, no rales , no accessory muscle use Abdominal: soft, nontender to palpation, no guarding, no appreciable organomegaly, PEG in place no bleeding no drainage. Ext: no gross muscle atrophy, no edema, no contractures Neuro: CN II-XI grossly intact, no focal neuro deficits Psych: Alert, oriented, appropriate affect - Labs CBC & Chem 7: 05/12/20 07:04 05/12/20 07:04 Labs: Abnormal Lab Results - Last 24 Hours (Table) 05/11/20 05/11/20 05/11/20 Range/Units 12:25 17:11 18:05 Lymphocytes # (1.0-4.8) k/uL Sodium 126 L (137-145) mmol/L Chloride 90 L (98-107) mmol/L Carbon Dioxide 31 H (22-30) mmol/L Creatinine 0.16 L (0.52-1.04) mg/dL Glucose 143 H (74-99) mg/dL POC Glucose (mg/dL) 151 H 154 H (75-99) mg/dL Calcium 8.3 L (8.4-10.2) mg/dL Magnesium 2.4 H (1.6-2.3) mg/dL Total Protein 5.7 L (6.3-8.2) g/dL Albumin 3.3 L (3.5-5.0) g/dL 05/11/20 05/12/20 05/12/20 Range/Units 20:24 00:01 05:38 Lymphocytes # (1.0-4.8) k/uL Sodium (137-145) mmol/L Chloride (98-107) mmol/L Carbon Dioxide (22-30) mmol/L Creatinine (0.52-1.04) mg/dL Glucose (74-99) mg/dL POC Glucose (mg/dL) 181 H 117 H 129 H (75-99) mg/dL Calcium (8.4-10.2) mg/dL Magnesium (1.6-2.3) mg/dL Total Protein (6.3-8.2) g/dL Albumin (3.5-5.0) g/dL 05/12/20 05/12/20 Range/Units 07:04 07:04 Lymphocytes # 0.9 L (1.0-4.8) k/uL Sodium 128 L (137-145) mmol/L Chloride 90 L (98-107) mmol/L Carbon Dioxide 33 H (22-30) mmol/L Creatinine 0.15 L (0.52-1.04) mg/dL Glucose 147 H (74-99) mg/dL POC Glucose (mg/dL) (75-99) mg/dL Calcium 8.1 L (8.4-10.2) mg/dL Magnesium (1.6-2.3) mg/dL Total Protein 5.5 L (6.3-8.2) g/dL Albumin 3.1 L (3.5-5.0) g/dL Assessment and Plan Assessment: Severe protein calorie malnutrition, cachexia, and failure to thrive secondary to cricopharyngeal dysphagia BMI 15.9 -s/p PEG tube placement, okay to start tub feedings, repeat labs at 1800 -Closely monitor for refeeding syndrome -Speech and GI recommendations appreciated -Remeron Diabetes mellitus -off fluids, tube feedings started -Follow blood sugars -SSI Hyponatremia - due to poor solute intake and 0.45 NS needed to use with D5, improving - Continue tube feedings - repeat in AM Hypomagnesemia - replace and recheck GERD -Pepcid Generalized weakness likely secondary to above -PT/OT Chronic: Osteoarthritis Neuropathy Hypoglycemia, resolved Hypokalemia , resolved DVT prophylaxis: SCDs Discussed with: patient, nursing Anticipated discharge: 1-[address]: home health vs SNF A total of 25 minutes was spent on the care of this complex patient more than 50% of the time was spent in counseling and care coordination.
[2020-05-12 12:48] LABS: Glucose,Whole Blood 136 mg/dL (75-99)
--- NOTE | 2020-05-12 16:38 | PN ---
PROGRESS NOTE DATE OF SERVICE: 05/12/20 Patient is a 79-year-old pleasant white female who underwent an EGD with a PEG tube placement twp days ago. She was started on tube feeds yesterday, tolerating well. She is complaining of some left upper quadrant abdominal pain. She denies any nausea, vomiting. PHYSICAL EXAMINATION: She appears comfortable. No apparent distress. Vital signs are stable. Conjunctivae pink. Sclerae anicteric. Oral cavity no lesions. NECK: No JVD or lymph node enlargement. CHEST: Clear to auscultation. HEART: Regular rate and rhythm. ABDOMEN: Soft. There was mild tenderness around the PEG site insertion, but the abdomen was very benign. The external bumper appeared to be tight so I loosened up the bumper. EXTREMITIES: No pedal edema. SKIN: No rashes. NEUROLOGIC: Alert and oriented x3. No focal deficits. LABS: From today BUN 8, creatinine 1.52, sodium is 128, potassium 3.8, chloride 90, BUN 33. IMPRESSION: 1. Decreased oral intake with progressive weight loss/some oropharyngeal dysphagia, status post EGD with PEG tube placement two days ago on tube feeds that were started yesterday, doing well. 2. Some pain around the PEG site probably from tightness of external bumper which was loosened today. 3. History of diabetes mellitus. 4. Electrolyte abnormalities with hyponatremia, being watched closely. RECOMMENDATIONS: 1. Continue with tube feeds. 2. She can continue with soft diet as tolerated, ( ) eating. 3. Continue with current management. 4. We will follow with you closely. Thank you for this consultation. MMODL / IJN: [id number] /
[2020-05-12 18:18] LABS: Glucose,Whole Blood 199 mg/dL (75-99)
[2020-05-12 20:13] LABS: Glucose,Whole Blood 192 mg/dL (75-99)
[2020-05-12] MEDS: MIRTAZAPINE 15 MG TAB PO SCH (21:19)
[2020-05-13 00:03] LABS: Glucose,Whole Blood 155 mg/dL (75-99)
[2020-05-13] MEDS: INSULIN ASPART (NovoLOG) 100 UNIT/ML VIAL SQ SCH ×5 (00:18→23:42)
[2020-05-13] MEDS: ACETAMINOPHEN TAB 325 MG TAB PO PRN ×4 (04:36→22:06)
[2020-05-13 06:07] LABS: Glucose,Whole Blood 118 mg/dL (75-99)
[2020-05-13 07:16] LABS: HCT 35.4 % (34.0-46.0); HGB 11.9 gm/dL (11.4-16.0); MCH 31.5 pg (25.0-35.0); MCHC 33.5 g/dL (31.0-37.0); Mean Platelet Volume 7.4; Platelet Count 200 k/uL (150-450); RBC 3.77 m/uL (3.80-5.40); RDW 12.9 % (11.5-15.5); WBC 11.5 k/uL (3.8-10.6)
[2020-05-13 07:50] LABS: ALT 15 U/L (4-34); AST 18 U/L (14-36); African American GFR (CKD) >90 (>60 ml/min/1.73 sqM); Albumin 2.9 g/dL (3.5-5.0); Alkaline Phosphatase 53 U/L (38-126); Anion Gap 4 mmol/L; Blood Urea Nitrogen 17 mg/dL (7-17); Calcium 8.2 mg/dL (8.4-10.2); Carbon Dioxide 30 mmol/L (22-30); Chloride 90 mmol/L (98-107); Glucose 119 mg/dL (74-99); Magnesium 1.6 mg/dL (1.6-2.3); Non-African American GFR(CKD) >90 (>60 ml/min/1.73 sqM); Potassium 4.1 mmol/L (3.5-5.1); Sodium 124 mmol/L (137-145); Total Bilirubin 0.5 mg/dL (0.2-1.3); Total Protein 5.2 g/dL (6.3-8.2)
[2020-05-13] MEDS: FAMOTIDINE 20 MG TAB PO SCH (08:22)
[2020-05-13] MEDS: HEPARIN SODIUM,PORCINE 5,000 UNIT/ML 1 ML VIAL SQ SCH ×2 (08:22→20:41)
[2020-05-13] MEDS ORDERED: polyethylene glycoL 3350 17 GM POWD.PACK PO STA (08:32)
[2020-05-13] MEDS: MAGNESIUM SULFATE-D5W PMX 1 GM in DEXTROSE/WATER 1 100ML.BAG IVPB SCH ×4 (09:13→12:59)
--- NOTE | 2020-05-13 09:32 | P.PN ---
Subjective Progress Note Date: 05/13/20 Principal diagnosis: dysphagia Patient is a 79-year-old female with diabetes mellitus not currently requiring treatment, prior esophageal stricture now with cricopharyngeal dysfunction, GERD, and osteoarthritis who presented to the emergency department with complaints of dysuria and poor nutritional status. Initially the patient was scheduled for PEG tube placement in December which was delayed due to Covid. In the ER she underwent an extensive evaluation. She was found to be hyponatremic with a sodium of 131. Chest x-ray showed no acute process. Initial urinalysis was negative. She is admitted for failure to thrive secondary to dysphagia as well as hyponatremia. She was started on Remeron for appetite stimulant dietary was consulted. GI was consulted who recommended placement of a PEG tube. Patient subsequently underwent PEG tube placement on 05/10/2020 without complications. Tube feedings started on 05/11 and slowly increased she has been tolerating them well. Patient seen and examined at bedside. States that she slept well last night. No chest pain, no nausea, no vomiting, no BM in 4 days. Objective - Vital Signs Vital signs: Vital Signs Temp 98 F 05/13/20 05:00 Pulse 73 05/13/20 05:00 Resp 16 05/13/20 05:00 BP 138/76 05/13/20 05:00 Pulse Ox 95 05/13/20 05:00 Intake & Output 05/12/20 05/13/20 05/13/20 18:59 06:59 18:59 Intake Total 730 462 42 Balance 730 462 42 Weight 45.926 kg Intake: Oral 240 Tube Feeding 490 462 42 Other: Voiding Method Bedside Commode Bedside Commode Bedside Commode Bedpan Bedpan # Voids 6 1 - Exam General: non toxic, no distress, appears at stated age, cachectic temporal wasting Derm: warm, dry Head: atraumatic, normocephalic, symmetric Eyes: EOMI, no lid lag, anicteric sclera Mouth: no lip lesion, mucus membranes dry Cardiovascular: S1S2 reg, no murmur, positive posterior tibial pulse bilateral, Lungs: Decreased bs bilateral, no rhonchi, no rales , no accessory muscle use Abdominal: soft, nontender to palpation, no guarding, no appreciable organomegaly, PEG in place no bleeding no drainage. Ext: no gross muscle atrophy, no edema, no contractures Neuro: CN II-XI grossly intact, no focal neuro deficits Psych: Alert, oriented, appropriate affect - Labs CBC & Chem 7: 05/13/20 07:04 05/13/20 07:04 Labs: Abnormal Lab Results - Last 24 Hours (Table) 05/12/20 05/12/20 05/12/20 Range/Units 12:46 18:16 20:11 WBC (3.8-10.6) k/uL RBC (3.80-5.40) m/uL Sodium (137-145) mmol/L Chloride (98-107) mmol/L Creatinine (0.52-1.04) mg/dL Glucose (74-99) mg/dL POC Glucose (mg/dL) 136 H 199 H 192 H (75-99) mg/dL Calcium (8.4-10.2) mg/dL Total Protein (6.3-8.2) g/dL Albumin (3.5-5.0) g/dL 05/13/20 05/13/20 05/13/20 Range/Units 00:02 06:05 07:04 WBC 11.5 H (3.8-10.6) k/uL RBC 3.77 L (3.80-5.40) m/uL Sodium (137-145) mmol/L Chloride (98-107) mmol/L Creatinine (0.52-1.04) mg/dL Glucose (74-99) mg/dL POC Glucose (mg/dL) 155 H 118 H (75-99) mg/dL Calcium (8.4-10.2) mg/dL Total Protein (6.3-8.2) g/dL Albumin (3.5-5.0) g/dL 05/13/20 Range/Units 07:04 WBC (3.8-10.6) k/uL RBC (3.80-5.40) m/uL Sodium 124 L (137-145) mmol/L Chloride 90 L (98-107) mmol/L Creatinine 0.18 L (0.52-1.04) mg/dL Glucose 119 H (74-99) mg/dL POC Glucose (mg/dL) (75-99) mg/dL Calcium 8.2 L (8.4-10.2) mg/dL Total Protein 5.2 L (6.3-8.2) g/dL Albumin 2.9 L (3.5-5.0) g/dL Assessment and Plan Assessment: Severe protein calorie malnutrition, cachexia, and failure to thrive secondary to cricopharyngeal dysphagia BMI 15.9 -s/p PEG tube placement -Tolerating tube feeds -Closely monitor for refeeding syndrome -Speech and GI recommendations appreciated -Remeron Diabetes mellitus -off fluids, tube feedings started -Follow blood sugars -SSI Hyponatremia - worsening and concern is related to changes in solute - Decrease free water - repeat labs at 1700 and in AM - Continue tube feedings Hypomagnesemia - replace and recheck GERD -Pepcid Generalized weakness likely secondary to above -PT/OT Chronic: Osteoarthritis Neuropathy Hypoglycemia, resolved Hypokalemia , resolved Called daughter no answer, no message left due to HIPPA DVT prophylaxis: SCDs Discussed with: patient, nursing Anticipated discharge: 1-[address]: home health vs SNF A total of 25 minutes was spent on the care of this complex patient more than 50% of the time was spent in counseling and care coordination.
[2020-05-13 12:18] LABS: Glucose,Whole Blood 176 mg/dL (75-99)
[2020-05-13] MEDS: THIAMINE 100 MG/ML 2 ML VIAL IVP SCH (13:00)
[2020-05-13] MEDS: CYANOCOBALAMIN 500 MCG TAB PO SCH (13:00)
[2020-05-13 17:34] LABS: African American GFR (CKD) >90 (>60 ml/min/1.73 sqM); Anion Gap 7 mmol/L; Blood Urea Nitrogen 14 mg/dL (7-17); Calcium 8.1 mg/dL (8.4-10.2); Carbon Dioxide 30 mmol/L (22-30); Chloride 87 mmol/L (98-107); Glucose 122 mg/dL (74-99); Magnesium 2.5 mg/dL (1.6-2.3); Non-African American GFR(CKD) >90 (>60 ml/min/1.73 sqM); Potassium 4.1 mmol/L (3.5-5.1); Sodium 124 mmol/L (137-145)
[2020-05-13 17:56] LABS: Glucose,Whole Blood 123 mg/dL (75-99)
[2020-05-13] MEDS: MIRTAZAPINE 15 MG TAB PO SCH (20:41)
[2020-05-13 21:00] LABS: Hemoglobin A1C 5.9 % (4.0-6.0)
--- NOTE | 2020-05-13 21:02 | PN ---
PROGRESS NOTE DATE OF DICTATION: 05/13/2020 This patient is a 79-year-old pleasant white female admitted to the hospital with failure to thrive, decreased oral intake, progressive weight loss, status post EGD with PEG tube placement 3 days ago. She is doing better. Tolerating diet well. Abdominal pain has improved. PHYSICAL EXAMINATION: Appears comfortable. No apparent distress. Vital signs are stable. Blood pressure is 111/69, temperature 98.6, and pulse rate 78. HEENT examination unremarkable. Conjunctivae pink. Sclerae anicteric. Oral cavity no lesions. NECK: No JVD or lymph node enlargement. CHEST: Clear to auscultation. HEART: Regular rate and rhythm. ABDOMEN: Soft. Non-tender. PEG tube in place. EXTREMITIES: No pedal edema. NEUROLOGIC: Alert and oriented x3. No focal deficits. LABS: Sodium is 124, potassium 4.1. BUN and creatinine 14 and 0.1, respectively. Albumin is 2.5. IMPRESSION: 1. Decreased oral intake with dysphagia and weight loss, status post EGD with PEG tube placement 3 days ago. Patient tolerating tube feeds well. 2. Abdominal pain at the site of PEG tube, resolved after the external bumper was adjusted. RECOMMENDATIONS: 1. Continue with tube feeds and advance the diet as tolerated. 2. Continue regular diet. 3. Will follow with you closely. MMODL / IJN: [id number] /
[2020-05-13 23:39] LABS: Glucose,Whole Blood 131 mg/dL (75-99)
[2020-05-14 05:39] LABS: Glucose,Whole Blood 129 mg/dL (75-99)
[2020-05-14] MEDS: INSULIN ASPART (NovoLOG) 100 UNIT/ML VIAL SQ SCH ×3 (05:39→17:55)
[2020-05-14] MEDS: CYANOCOBALAMIN 500 MCG TAB PO SCH (08:45)
[2020-05-14] MEDS: HEPARIN SODIUM,PORCINE 5,000 UNIT/ML 1 ML VIAL SQ SCH ×2 (08:46→20:12)
[2020-05-14] MEDS: FAMOTIDINE 20 MG TAB PO SCH (08:46)
[2020-05-14] MEDS: THIAMINE 100 MG/ML 2 ML VIAL IVP SCH (08:46)
[2020-05-14 08:57] LABS: HCT 37.9 % (34.0-46.0); HGB 12.2 gm/dL (11.4-16.0); MCH 30.6 pg (25.0-35.0); MCHC 32.2 g/dL (31.0-37.0); MCV 95.1 fL (80.0-100.0); Mean Platelet Volume 7.4; Platelet Count 250 k/uL (150-450); RBC 3.98 m/uL (3.80-5.40); RDW 12.9 % (11.5-15.5); WBC 7.5 k/uL (3.8-10.6)
[2020-05-14 09:07] LABS: ALT 19 U/L (4-34); AST 25 U/L (14-36); African American GFR (CKD) >90 (>60 ml/min/1.73 sqM); Albumin 3.2 g/dL (3.5-5.0); Alkaline Phosphatase 60 U/L (38-126); Anion Gap 6 mmol/L; Blood Urea Nitrogen 9 mg/dL (7-17); Calcium 8.5 mg/dL (8.4-10.2); Carbon Dioxide 33 mmol/L (22-30); Chloride 90 mmol/L (98-107); Glucose 143 mg/dL (74-99); Magnesium 1.9 mg/dL (1.6-2.3); Non-African American GFR(CKD) >90 (>60 ml/min/1.73 sqM); Phosphorus 3.2 mg/dL (2.5-4.5); Potassium 4.7 mmol/L (3.5-5.1); Sodium 129 mmol/L (137-145); Total Bilirubin 0.3 mg/dL (0.2-1.3); Total Protein 5.7 g/dL (6.3-8.2)
[2020-05-14] MEDS ORDERED: LACTULOSE 20 GM/30 ML CUP PEG/G-TUBE ONE (09:15)
[2020-05-14 10:28] VITALS: BMI 17.5
[2020-05-14] MEDS: ACETAMINOPHEN TAB 325 MG TAB PO PRN ×2 (10:38→20:15)
[2020-05-14 11:25] LABS: Glucose,Whole Blood 136 mg/dL (75-99)
--- NOTE | 2020-05-14 13:57 | P.PN ---
Subjective Progress Note Date: 05/14/20 Principal diagnosis: dysphagia Patient is a 79-year-old female with diabetes mellitus not currently requiring treatment, prior esophageal stricture now with cricopharyngeal dysfunction, GERD, and osteoarthritis who presented to the emergency department with complaints of dysuria and poor nutritional status. Initially the patient was scheduled for PEG tube placement in December which was delayed due to Covid. In the ER she underwent an extensive evaluation. She was found to be hyponatremic with a sodium of 131. Chest x-ray showed no acute process. Initial urinalysis was negative. She is admitted for failure to thrive secondary to dysphagia as well as hyponatremia. She was started on Remeron for appetite stimulant dietary was consulted. GI was consulted who recommended placement of a PEG tube. Patient subsequently underwent PEG tube placement on 05/10/2020 without complications. Tube feedings started on 05/11 and slowly increased she has been tolerating them well. Patient seen and examined at bedside. Feeling more full today. Had a small BM this morning. Feels like she needs it more. No chest pain, shortness breath, or nausea. Objective - Vital Signs Vital signs: Vital Signs Temp 98.6 F 05/14/20 11:18 Pulse 75 05/14/20 11:18 Resp 19 05/14/20 11:18 BP 91/61 05/14/20 11:18 Pulse Ox 93 L 05/14/20 05:00 Intake & Output 05/13/20 05/14/20 05/14/20 18:59 06:59 18:59 Intake Total 378 504 272 Balance 378 504 272 Weight 44.9 kg 44.9 kg Intake: Tube Feeding 378 504 272 Other: Voiding Method Bedside Commode Bedside Commode Bedside Commode Bedpan Bedpan Bedpan # Voids 2 1 # Bowel Movements 1 - Exam General: non toxic, no distress, appears at stated age, cachectic temporal wasting Derm: warm, dry Head: atraumatic, normocephalic, symmetric Eyes: EOMI, no lid lag, anicteric sclera Mouth: no lip lesion, mucus membranes dry Cardiovascular: S1S2 reg, no murmur, positive posterior tibial pulse bilateral, Lungs: CTA bilateral, no rhonchi, no rales , no accessory muscle use Abdominal: soft, nontender to palpation, no guarding, no appreciable organomegaly, PEG in place no bleeding no drainage. Ext: no gross muscle atrophy, no edema, no contractures Neuro: CN II-XI grossly intact, no focal neuro deficits Psych: Alert, oriented, appropriate affect - Labs CBC & Chem 7: 05/14/20 08:07 05/14/20 08:07 Labs: Abnormal Lab Results - Last 24 Hours (Table) 05/13/20 05/13/20 05/13/20 Range/Units 17:04 17:55 23:36 Sodium 124 L (137-145) mmol/L Chloride 87 L (98-107) mmol/L Carbon Dioxide (22-30) mmol/L Creatinine 0.18 L (0.52-1.04) mg/dL Glucose 122 H (74-99) mg/dL POC Glucose (mg/dL) 123 H 131 H (75-99) mg/dL Calcium 8.1 L (8.4-10.2) mg/dL Magnesium 2.5 H (1.6-2.3) mg/dL Total Protein (6.3-8.2) g/dL Albumin (3.5-5.0) g/dL 05/14/20 05/14/20 05/14/20 Range/Units 05:38 08:07 11:23 Sodium 129 L (137-145) mmol/L Chloride 90 L (98-107) mmol/L Carbon Dioxide 33 H (22-30) mmol/L Creatinine 0.17 L (0.52-1.04) mg/dL Glucose 143 H (74-99) mg/dL POC Glucose (mg/dL) 129 H 136 H (75-99) mg/dL Calcium (8.4-10.2) mg/dL Magnesium (1.6-2.3) mg/dL Total Protein 5.7 L (6.3-8.2) g/dL Albumin 3.2 L (3.5-5.0) g/dL Assessment and Plan Assessment: Severe protein calorie malnutrition, cachexia, and failure to thrive secondary to cricopharyngeal dysphagia BMI 15.9 -s/p PEG tube placement -Tolerating tube feeds -Closely monitor for refeeding syndrome -Speech and GI recommendations appreciated -Remeron Constipation - lactulose Depression - Remeron increased 8/3 Diabetes mellitus -off fluids, tube feedings started -Follow blood sugars -SSI Hyponatremia - worsening and concern is related to changes in solute - Decrease free water - repeat labs at 1700 and in AM - Continue tube feedings Hypomagnesemia - replace and recheck GERD -Pepcid Generalized weakness likely secondary to above -PT/OT Chronic: Osteoarthritis Neuropathy Hypoglycemia, resolved Hypokalemia , resolved DVT prophylaxis: SCDs Discussed with: patient, nursing Anticipated discharge: in AM Anticipated discharge place: SNF A total of 25 minutes was spent on the care of this complex patient more than 50% of the time was spent in counseling and care coordination.
[2020-05-14 17:48] LABS: Glucose,Whole Blood 169 mg/dL (75-99)
[2020-05-14] MEDS: MIRTAZAPINE 15 MG TAB PO SCH (20:12)
--- NOTE | 2020-05-14 21:43 | PN ---
PROGRESS NOTE DATE OF SERVICE: 05/14/2020 Patient is a 79-year-old pleasant white female who had an EGD with a PEG tube placement 3 days ago. She is tolerating her tube feeds well. She is able to eat some soft diet. She is complaining of pain at the site of PEG tube because she feels it is stretching her skin and causing discomfort, especially when she is sitting. She denies any nausea or vomiting. PHYSICAL EXAMINATION: Appears comfortable, in no apparent distress. VITAL SIGNS: Stable. Blood pressure is 159/79, pulse rate 72, temperature 97.6. HEENT: Examination unremarkable. Conjunctivae are pink. Sclerae anicteric. Oral cavity no lesions. Neck no JVD or lymph node enlargement. CHEST: Clear to auscultation. HEART: Regular rate and rhythm. ABDOMEN: Soft. The external bumper of the PEG tube appears to be abutting the skin especially when she is sitting down, hence, I loosened the bumper by 5 mm. EXTREMITIES: No pedal edema. NEUROLOGIC: Alert and oriented x3. No focal deficits. IMPRESSION: 1. Decreased oral intake with malnutrition and dysphagia, status post EGD with PEG tube placement 3 days ago. Patient tolerating tube feeds well. 2. Abdominal pain at the site of the PEG tube placement because of the external bolster abutting the skin. This was loosened a little bit today. RECOMMENDATION: 1. Continue with tube feeds. 2. Increase oral intake. 3. Increase ambulation. 4. Physical therapy. Thank you for this consultation. MICHAELLE / ESTHERN: [id number] /
[2020-05-14 23:56] LABS: Glucose,Whole Blood 149 mg/dL (75-99)
[2020-05-15] MEDS: INSULIN ASPART (NovoLOG) 100 UNIT/ML VIAL SQ SCH ×3 (00:07→12:12)
[2020-05-15 05:52] LABS: Glucose,Whole Blood 133 mg/dL (75-99)
[2020-05-15 06:49] LABS: African American GFR (CKD) >90 (>60 ml/min/1.73 sqM); Anion Gap 4 mmol/L; Blood Urea Nitrogen 12 mg/dL (7-17); Calcium 8.6 mg/dL (8.4-10.2); Carbon Dioxide 31 mmol/L (22-30); Chloride 93 mmol/L (98-107); Glucose 130 mg/dL (74-99); Magnesium 1.7 mg/dL (1.6-2.3); Non-African American GFR(CKD) >90 (>60 ml/min/1.73 sqM); Potassium 4.7 mmol/L (3.5-5.1); Sodium 128 mmol/L (137-145)
[2020-05-15] MEDS: HEPARIN SODIUM,PORCINE 5,000 UNIT/ML 1 ML VIAL SQ SCH (08:46)
[2020-05-15] MEDS: FAMOTIDINE 20 MG TAB PO SCH (08:46)
[2020-05-15] MEDS: CYANOCOBALAMIN 500 MCG TAB PO SCH (08:46)
[2020-05-15] MEDS: THIAMINE 100 MG/ML 2 ML VIAL IVP SCH (08:46)
[2020-05-15] MEDS: MAGNESIUM SULFATE-D5W PMX 1 GM in DEXTROSE/WATER 1 100ML.BAG IVPB SCH ×2 (08:47→10:36)
--- NOTE | 2020-05-15 08:47 | P.DS ---
Providers Date of admission: 05/07/20 11:47 Expected date of discharge: 05/15/20 Attending physician: Mary Willett MD Consults: 05/07/20 11:50 Consult Physician Urgent Consulting Provider: Xenia Moreno Consult Reason/Comments: possible PEG tube placement Do you want consulting provider notified?: Yes Primary care physician: Physician Nonstaff Hospital Course: Discharge Diagnosis: Severe protein calorie malnutrition, cachexia, and failure to thrive secondary to cricopharyngeal dysphagia BMI 15.9 Constipation Depression Diabetes mellitus Hyponatremia Hypomagnesemia GERD Generalized weakness likely secondary to above Hypoglycemia, resolved Hypokalemia , resolved Osteoarthritis Neuropathy Hospital Course: Patient is a 79-year-old female with diabetes mellitus not currently requiring treatment, prior esophageal stricture now with cricopharyngeal dysfunction, GERD, and osteoarthritis who presented to the emergency department with complaints of dysuria and poor nutritional status. Initially the patient was scheduled for PEG tube placement in December which was delayed due to Covid. In the ER she underwent an extensive evaluation. She was found to be hyponatremic with a sodium of 131. Chest x-ray showed no acute process. Initial urinalysis was negative. She is admitted for failure to thrive secondary to dysphagia as well as hyponatremia. She was started on Remeron for appetite stimulant dietary was consulted. GI was consulted who recommended placement of a PEG tube. Patient subsequently underwent PEG tube placement on 05/10/2020 without complications. Tube feedings started on 05/11 and slowly increased she has been tolerating them well. Large BM on 05/14. She had a low sodi um level which has stabalized at 128-129 and her Tube feed flushes have been adjusted. She was COVID negative and determined stable to go to rehab. Patient seen and examined at bedside. Feeling good today, still weak, pain at tube insertion site is better. No nausea, no abdominal distension. Vital signs reviewed and stable. General: non toxic, no distress, appears at stated age, cachetic Derm: warm, dry Head: atraumatic, normocephalic, symmetric Eyes: EOMI, no lid lag, anicteric sclera Mouth: no lip lesion, mucus membranes moist Cardiovascular: S1S2 reg, no murmur, positive posterior tibial pulse bilateral, Lungs: CTA bilateral, no rhonchi, no rales , no accessory muscle use Abdominal: soft, nontender to palpation, no guarding, no appreciable organomegaly, tube insertion without warmth, erythema, drainage. Ext: no gross muscle atrophy, no edema, no contractures Neuro: CN II-XI grossly intact, no focal neuro deficits Psych: Alert, oriented, appropriate affect A total of 35 minutes of time were spent preparing this complex discharge summary . Patient Condition at Discharge: Stable Plan - Discharge Summary Discharge Rx Participant: No New Discharge Prescriptions: New Magnesium Oxide [Mag-Ox] 400 mg PO DAILY tab INSULIN ASPART (NovoLOG) [NovoLOG (formulary)] 0 unit SQ Q6HR vial Famotidine [Pepcid] 40 mg PO DAILY tab Mirtazapine [Remeron] 15 mg PO HS tab Thiamine [Vitamin B-1] 100 mg PO DAILY #30 tablet Cyanocobalamin [Vitamin B-12] 1,000 mcg PO DAILY tab Continue Acetaminophen Tab [Tylenol] 500 mg PO Q6H PRN PRN Reason: Pain Discontinued Mirtazapine [Remeron] 7.5 mg PO HS Discharge Medication List Acetaminophen Tab [Tylenol] 500 mg PO Q6H PRN 08/21/18 [History] Cyanocobalamin [Vitamin B-12] 1,000 mcg PO DAILY tab 05/15/20 [Rx] Famotidine [Pepcid] 40 mg PO DAILY tab 05/15/20 [Rx] INSULIN ASPART (NovoLOG) [NovoLOG (formulary)] 0 unit SQ Q6HR vial 05/15/20 [Rx] Magnesium Oxide [Mag-Ox] 400 mg PO DAILY tab 05/15/20 [Rx] Mirtazapine [Remeron] 15 mg PO HS tab 05/15/20 [Rx] Thiamine [Vitamin B-1] 100 mg PO DAILY #30 tablet 05/15/20 [Rx] Follow up Appointment(s)/Referral(s): Nonstaff,Physician [Primary Care Provider] - 1-2 days Xenia Moreno MD [STAFF PHYSICIAN] - 2 Weeks Activity/Diet/Wound Care/Special Instructions: Activity: as tolerated fall precautions Diet: Tube feeding: Jevity 1 at goal of 62 ml/hr, free water flush at 18 ml every 4 hours Special Instructions: BMP with magnesium in 2 days DX: hyponatremia, hypomagnesemia Plan of Treatment: Pt high risk for refeeding syndrome. Rec initiate Jevity 1.o at 10 ml/hr , increased by 10 ml every 10 hr to goal of 42 ml/hr. As tolerated increase by 10 ml every 24 hrs to final goal of 62 ml/hr. Flush with 30 ml free water every 4 hrs .
[2020-05-15] MEDS ORDERED: MAGNESIUM OXIDE 400 MG TAB PO SCH (09:00)
[2020-05-15] MEDS: ACETAMINOPHEN TAB 325 MG TAB PO PRN (10:56)
[2020-05-15 11:21] LABS: Glucose,Whole Blood 160 mg/dL (75-99)
[2020-05-15 11:45] VITALS: BP 118/63; PULSE 72; RESP 22; TEMP 98.2
== END 2020-05-15 14:05 | DRG 641 ==
LOC: EC 08:58 → 5NMEDONC 11:47
PROVIDERS: ADMIT Family Medicine; ATTEND Family Medicine
PROC: 3E0G76Z Introduction of Nutritional Substance into Upper GI, Via Natural or Artificial Opening (ICD-10-PCS; principal; 2020-05-10 12:40)
PROC: 0DH63UZ Insertion of Feeding Device into Stomach, Percutaneous Approach (ICD-10-PCS; principal; 2020-05-10 12:40)
DX: E43 Unspecified severe protein-calorie malnutrition (principal); Z68.1 Body mass index [BMI] 19.9 or less, adult; R64 Cachexia; E87.3 Alkalosis; E87.1 Hypo-osmolality and hyponatremia; R13.12 Dysphagia, oropharyngeal phase; M41.9 Scoliosis, unspecified; E86.0 Dehydration; K22.4 Dyskinesia of esophagus; Z11.59 Encounter for screening for other viral diseases; K29.70 Gastritis, unspecified, without bleeding; E87.6 Hypokalemia; E83.42 Hypomagnesemia; K59.00 Constipation, unspecified; R30.0 Dysuria; F32.9 Major depressive disorder, single episode, unspecified; E11.649 Type 2 diabetes mellitus with hypoglycemia without coma; E87.8 Other disorders of electrolyte and fluid balance, not elsewhere classified; R62.7 Adult failure to thrive; M19.90 Unspecified osteoarthritis, unspecified site; K21.9 Gastro-esophageal reflux disease without esophagitis; E11.40 Type 2 diabetes mellitus with diabetic neuropathy, unspecified; Z79.84 Long term (current) use of oral hypoglycemic drugs; Z79.899 Other long term (current) drug therapy; Z88.1 Allergy status to other antibiotic agents; Z88.6 Allergy status to analgesic agent; Z88.5 Allergy status to narcotic agent; Z88.8 Allergy status to other drugs, medicaments and biological substances; Z91.81 History of falling; Z71.89 Other specified counseling
CPT/HCPCS: 36415; 43246; 71046; 80048; 80053; 81003; 82550; 83036; 83605; 83735; 84100; 84484; 85025; 85027; 85610; 85730; 87635; 93005; 96360; 96361; 99285

== ENCOUNTER 2020-05-30 15:22 | Inpatient (IN) | payer MEDICARE ==
[2020-05-30] MEDS ORDERED: SODIUM CHLORIDE 0.9% 500 ML 500 ML IV STA (15:45)
[2020-05-30] MEDS ORDERED: ONDANSETRON 4 MG/2 ML VIAL IVP STA (15:45)
[2020-05-30] MEDS ORDERED: MECLIZINE 12.5 MG TAB PO STA (15:46)
[2020-05-30] MEDS ORDERED: ACETAMINOPHEN TAB 325 MG TAB PO STA (15:47)
--- NOTE | 2020-05-30 16:16 | ED ---
General Adult HPI - General Chief complaint: Dizziness Stated complaint: anxiety Time Seen by Provider: 05/30/20 15:45 Source: patient, EMS Mode of arrival: EMS Limitations: no limitations - History of Present Illness Initial comments: 39-year-old female with past history of diabetes, esophageal stricture, cachexia presents to the emergency department from [facility]. EMS reports that the patient called 911 because the staff "was not tending to her quickly." The staff had no idea that the patient called and was unsure of the reason. The patient arrives to our facility and states that she has felt extremely vertiginous with nausea that has denied vomiting. Admits to chills but no recorded fever at her facility. Also admits to a mild nonproductive cough. Denies chest pain or abdominal pain. Patient recently hospitalized for poor by mouth intake and a feeding tube was placed. States that she has been not tolerating her feeds. The changes in her bowel or bladder habits. Denies dysuria, hematuria or difficulty voiding. Denies diarrhea, constipation, black stools or hematochezia. The remainder of the HPI is limited as the patient is a poor historian and [facility] could not provide any information as to why the patient was being transferred. Upon obtaining the patient's vital signs she does have a fever - Related Data Home Medications Medication Instructions Recorded Confirmed Acetaminophen Tab [Tylenol] 500 mg PO Q6H PRN 08/21/18 05/30/20 Cyanocobalamin [Vitamin B-12] 1,000 mcg PO DAILY@89905/30/20 05/30/20 Famotidine 40 mg PO DAILY@89905/30/20 05/30/20 Jevity 1.5 Clemente Liquid 237 ml PO QID 05/30/20 05/30/20 Magnesium Oxide [Mag-Ox] 400 mg PO DAILY@89905/30/20 05/30/20 Mirtazapine [Remeron] 15 mg PO HS@2100 05/30/20 05/30/20 Thiamine [Vitamin B-1] 100 mg PO DAILY@89905/30/20 05/30/20 Previous Rx's Medication Instructions Recorded Amoxic-Pot Clav 200-28.5MG/5Ml 12 ml PO Q12HR 10 Days #1 bottle 06/05/20 [Augmentin 200-28.5 mg/5 ml Susp] Bethanechol [Urecholine] 25 mg PO TID #90 tab 06/05/20 Mirtazapine [Remeron] 15 mg PO HS@2100 #30 tab 06/05/20 Allergies Allergy/AdvReac Type Severity Reaction Status Date / Time NSAIDS (Non-Steroidal Allergy Severe Swelling Verified 05/30/20 17:13 Anti-Inflamma clindamycin Allergy Unknown Verified 05/30/20 17:13 codeine Allergy Unknown Verified 05/30/20 17:13 sodium hyaluronate Allergy Unknown Uncoded 05/30/20 15:52 Review of Systems ROS Statement: Those systems with pertinent positive or pertinent negative responses have been documented in the HPI. ROS Other: All systems not noted in ROS Statement are negative. Past Medical History Past Medical History: Diabetes Mellitus, GERD/Reflux, Osteoarthritis (OA) Additional Past Medical History / Comment(s): neuropathy, falls, throat stricture, scoliosis History of Any Multi-Drug Resistant Organisms: None Reported Past Surgical History: Orthopedic Surgery Additional Past Surgical History / Comment(s): knee surgery, back surgery Past Anesthesia/Blood Transfusion Reactions: No Reported Reaction Past Psychological History: No Psychological Hx Reported Smoking Status: Never smoker Past Alcohol Use History: None Reported Past Drug Use History: None Reported - Past Family History Father Additional Family Medical History / Comment(s): Father at age 85 from prostate cancer. Mother at age 100 from old age. Patient is 1 brother with no major medical problems. He does have history of dupuytren's contractions. Patient has one sister that has passed with history of smoking and alcohol use. Patient has 3 children. One daughter with no major medical problems. One son with no major medical problems. One son has passed at age 48 from kidney cancer. Family Family Medical History: No Reported History General Exam Limitations: no limitations General appearance: alert, in no apparent distress Head exam: Present: atraumatic, normocephalic, normal inspection Eye exam: Present: normal appearance, PERRL, EOMI. Absent: scleral icterus, conjunctival injection, periorbital swelling ENT exam: Present: normal exam, mucous membranes dry Neck exam: Present: normal inspection. Absent: tenderness, meningismus, lymphadenopathy Respiratory exam: Present: rales. Absent: respiratory distress, wheezes, rhonchi, stridor, accessory muscle use Cardiovascular Exam: Present: normal rhythm, tachycardia, normal heart sounds. Absent: systolic murmur, diastolic murmur, rubs, gallop, clicks GI/Abdominal exam: Present: soft, normal bowel sounds. Absent: distended, tenderness, guarding, rebound, rigid Extremities exam: Present: normal inspection, full ROM, normal capillary refill. Absent: tenderness, pedal edema, joint swelling, calf tenderness Back exam: Present: normal inspection Neurological exam: Present: alert, oriented X3, CN II-XII intact Psychiatric exam: Present: normal affect, anxious Skin exam: Present: warm, dry, intact, normal color. Absent: rash Course Vital Signs 05/30/20 05/30/20 05/30/20 15:45 17:10 18:24 Temperature 102.8 F H 101.4 F H 100.1 F H Pulse Rate 106 H 91 92 Respiratory 18 18 18 Rate Blood Pressure 174/84 135/81 109/60 O2 Sat by Pulse 94 L 93 L Oximetry EKG Findings - EKG Comments: EKG Findings:: EKG demonstrates sinus tachycardia with a ventricular rate of 103. RI interval 160. QRS 74. QTC of 424. No acute ST segment elevations or depressions concerning for ischemic changes Medical Decision Making - Medical Decision Making Upon the patient is placed in room 13. A thorough history and physical exam is performed. Patient does have a temp of 102.8. Provide is established. The patient was given a 500 bolus of normal saline and 650 mg of Tylenol. Laboratory studies were conducted. The patient went for a chest x-ray. Lab studies are remarkable for a hyponatremia of 122. Urinalysis shows small leukocyte esterase. Chest x-ray demonstrates a new mild left lower lobe pneumonia compared to old. KUB demonstrates nonacute abdomen. The patient was started on 130 mL per hour. Blood cultures were obtained. Patient was started on Zosyn and Vanco for her new infiltrate. Patient is swabbed for Covid. I recommended hospital admission for hyponatremia, fever for which the patient did agree to. I discussed the case with Dr. Bardales who agreed to admit the patient. Patient was previously admitted to their service earlier this month. The penelope castaneda's daughter was updated and the patient was then transferred to floor in stable condition - Lab Data Result diagrams: 06/04/20 07:44 06/04/20 07:44 Lab Results 05/30/20 05/30/20 05/30/20 Range/Units 16:18 16:18 16:18 WBC 10.6 (3.8-10.6) k/uL RBC 4.15 (3.80-5.40) m/uL Hgb 12.7 (11.4-16.0) gm/dL Hct 38.3 (34.0-46.0) % MCV 92.4 (80.0-100.0) fL MCH 30.7 (25.0-35.0) pg MCHC 33.2 (31.0-37.0) g/dL RDW 12.8 (11.5-15.5) % Plt Count 339 (150-450) k/uL Neutrophils % 92 % Lymphocytes % 4 % Monocytes % 3 % Eosinophils % 1 % Basophils % 0 % Neutrophils # 9.7 H (1.3-7.7) k/uL Lymphocytes # 0.4 L (1.0-4.8) k/uL Monocytes # 0.4 (0-1.0) k/uL Eosinophils # 0.1 (0-0.7) k/uL Basophils # 0.0 (0-0.2) k/uL Sodium 122 L (137-145) mmol/L Potassium 4.2 (3.5-5.1) mmol/L Chloride 84 L (98-107) mmol/L Carbon Dioxide 30 (22-30) mmol/L Anion Gap 8 mmol/L BUN 17 (7-17) mg/dL Creatinine 0.16 L (0.52-1.04) mg/dL Est GFR (CKD-EPI)AfAm >90 (>60 ml/min/1.73 sqM) Est GFR (CKD-EPI)NonAf >90 (>60 ml/min/1.73 sqM) Glucose 164 H (74-99) mg/dL Plasma Lactic Acid Angel 1.7 (0.7-2.0) mmol/L Calcium 8.7 (8.4-10.2) mg/dL Total Bilirubin 0.5 (0.2-1.3) mg/dL AST 24 (14-36) U/L ALT 19 (4-34) U/L Alkaline Phosphatase 66 (38-126) U/L Total Protein 6.4 (6.3-8.2) g/dL Albumin 3.8 (3.5-5.0) g/dL Lipase 69 (23-300) U/L Urine Color Urine Appearance (Clear) Urine pH (5.0-8.0) Ur Specific Sutton (1.001-1.035) Urine Protein (Negative) Urine Glucose (UA) (Negative) Urine Ketones (Negative) Urine Blood (Negative) Urine Nitrite (Negative) Urine Bilirubin (Negative) Urine Urobilinogen (<2.0) mg/dL Ur Leukocyte Esterase (Negative) Urine RBC (0-5) /hpf Urine WBC (0-5) /hpf Ur Squamous Epith Cells (0-4) /hpf Amorphous Sediment (None) /hpf Coronavirus (PCR) (Not Detected) 05/30/20 05/30/20 Range/Units 16:21 16:21 WBC (3.8-10.6) k/uL RBC (3.80-5.40) m/uL Hgb (11.4-16.0) gm/dL Hct (34.0-46.0) % MCV (80.0-100.0) fL MCH (25.0-35.0) pg MCHC (31.0-37.0) g/dL RDW (11.5-15.5) % Plt Count (150-450) k/uL Neutrophils % % Lymphocytes % % Monocytes % % Eosinophils % % Basophils % % Neutrophils # (1.3-7.7) k/uL Lymphocytes # (1.0-4.8) k/uL Monocytes # (0-1.0) k/uL Eosinophils # (0-0.7) k/uL Basophils # (0-0.2) k/uL Sodium (137-145) mmol/L Potassium (3.5-5.1) mmol/L Chloride (98-107) mmol/L Carbon Dioxide (22-30) mmol/L Anion Gap mmol/L BUN (7-17) mg/dL Creatinine (0.52-1.04) mg/dL Est GFR (CKD-EPI)AfAm (>60 ml/min/1.73 sqM) Est GFR (CKD-EPI)NonAf (>60 ml/min/1.73 sqM) Glucose (74-99) mg/dL Plasma Lactic Acid Angel (0.7-2.0) mmol/L Calcium (8.4-10.2) mg/dL Total Bilirubin (0.2-1.3) mg/dL AST (14-36) U/L ALT (4-34) U/L Alkaline Phosphatase (38-126) U/L Total Protein (6.3-8.2) g/dL Albumin (3.5-5.0) g/dL Lipase (23-300) U/L Urine Color Yellow Urine Appearance Turbid H (Clear) Urine pH 8.0 (5.0-8.0) Ur Specific Sutton 1.012 (1.001-1.035) Urine Protein Negative (Negative) Urine Glucose (UA) Trace H (Negative) Urine Ketones Negative (Negative) Urine Blood Negative (Negative) Urine Nitrite Negative (Negative) Urine Bilirubin Negative (Negative) Urine Urobilinogen <2.0 (<2.0) mg/dL Ur Leukocyte Esterase Small H (Negative) Urine RBC 3 (0-5) /hpf Urine WBC 4 (0-5) /hpf Ur Squamous Epith Cells <1 (0-4) /hpf Amorphous Sediment Few H (None) /hpf Coronavirus (PCR) Not Detected (Not Detected) Disposition Clinical Impression: Hyponatremia, Pyrexia, HCAP (healthcare-associated pneumonia), SIRS (systemic inflammatory response syndrome) Disposition: ADMITTED IP TO THIS [facility] Condition: Stable Is patient prescribed a controlled substance at d/c from ED?: No Decision to Admit Reason: Admit from EC Decision Date: 05/30/20 Decision Time: 17:21
[2020-05-30 16:33] LABS: Basophils % (A) 0 %; Eosinophils # (A) 0.1 k/uL (0-0.7); Eosinophils % (A) 1 %; HCT 38.3 % (34.0-46.0); HGB 12.7 gm/dL (11.4-16.0); Lymphocytes # (A) 0.4 k/uL (1.0-4.8); Lymphocytes % (A) 4 %; MCH 30.7 pg (25.0-35.0); MCHC 33.2 g/dL (31.0-37.0); MCV 92.4 fL (80.0-100.0); Mean Platelet Volume 6.9; Monocytes # (A) 0.4 k/uL (0-1.0); Monocytes % (A) 3 %; Neutrophils # (A) 9.7 k/uL (1.3-7.7); Neutrophils % (A) 92 %; Platelet Count 339 k/uL (150-450); RBC 4.15 m/uL (3.80-5.40); RDW 12.8 % (11.5-15.5); WBC 10.6 k/uL (3.8-10.6)
[2020-05-30 16:38] LABS: Amorphous Sediment,Urine Few /hpf; Appearance,Urine Turbid (Clear); Bilirubin,Urine Negative (Negative); Blood,Urine Negative (Negative); Color,Urine Yellow; Glucose,Urine (UA) Trace (Negative); Ketones,Urine Negative (Negative); Leukocyte Esterase,Urine Small (Negative); Nitrite,Urine Negative (Negative); Protein,Urine Negative (Negative); RBC,Urine 3 /hpf (0-5); Specific Gravity,Urine 1.012 (1.001-1.035); Squamous Epithelial Cell,Urine <1 /hpf (0-4); Urobilinogen,Urine <2.0 mg/dL (<2.0); WBC,Urine 4 /hpf (0-5)
[2020-05-30 16:41] LABS: ALT 19 U/L (4-34); AST 24 U/L (14-36); African American GFR (CKD) >90 (>60 ml/min/1.73 sqM); Albumin 3.8 g/dL (3.5-5.0); Alkaline Phosphatase 66 U/L (38-126); Anion Gap 8 mmol/L; Blood Urea Nitrogen 17 mg/dL (7-17); Calcium 8.7 mg/dL (8.4-10.2); Carbon Dioxide 30 mmol/L (22-30); Chloride 84 mmol/L (98-107); Glucose 164 mg/dL (74-99); Lipase 69 U/L (23-300); Non-African American GFR(CKD) >90 (>60 ml/min/1.73 sqM); Potassium 4.2 mmol/L (3.5-5.1); Sodium 122 mmol/L (137-145); Total Bilirubin 0.5 mg/dL (0.2-1.3); Total Protein 6.4 g/dL (6.3-8.2)
--- NOTE | 2020-05-30 17:02 | XR ---
EXAMINATION TYPE: XR chest 2V DATE OF EXAM: 05/30/2020 COMPARISON: NONE HISTORY: Weakness. Fever TECHNIQUE: FINDINGS: There is increased density behind the heart in the lateral view that is probably some left lower lobe airspace infiltrate. There is no heart failure. Heart size is normal. There is minimal huong nting of the costophrenic angles. There is anterior wedging of multiple thoracic and lumbar vertebra that appear to be L2 and T12 and T8 unchanged. . IMPRESSION: There is a new mild left lower lobe pneumonia compared to old exam. There is new small pleural effusions. No heart failure.
--- NOTE | 2020-05-30 17:04 | XR ---
EXAMINATION TYPE: XR KUB DATE OF EXAM: 05/30/2020 COMPARISON: NONE HISTORY: Fever and dizziness TECHNIQUE: Single view FINDINGS: There is no sign of intestinal obstruction or pneumoperitoneum. Fecal pattern is normal. Th ere is gastrostomy tube. There is no evidence of a mass. IMPRESSION: Nonacute abdomen.
[2020-05-30] MEDS ORDERED: PIPERACILLIN-TAZOBACTAM 3.375 GM in SODIUM CHLORIDE 0.9% 100 ML IVPB STA (17:21)
[2020-05-30] MEDS ORDERED: VANCOMYCIN IV PER PHARMACY 1 EACH MISC MISCELLANE PRN (17:21)
[2020-05-30] MEDS ORDERED: VANCOMYCIN 1,250 MG in SODIUM CHLORIDE 0.9% 250 ML IVPB ONE (17:30)
[2020-05-30] MEDS ORDERED: NALOXONE 0.4 MG/ML 1 ML VIAL IV PRN (17:34)
[2020-05-30] MEDS: SODIUM CHLORIDE 0.9% 1,000 ML IV SCH (22:53)
[2020-05-31] MEDS: SODIUM CHLORIDE 0.9% 1,000 ML IV SCH ×3 (03:32→16:14)
--- NOTE | 2020-05-31 03:54 | P.HPIM ---
History of Present Illness H&P Date: 05/30/20 Chief Complaint: confusion 79-year-old female with failure to thrive on tube feeding through PEG tube, diabetes mellitus not currently on treatment Patient comes in today from [facility] after she notified 911 seeking help. She explains that nursing staff over there was not attentive to her needs and she wanted to get out of there since she decided to call 911 and she was feeling very cold and having chills and no one was providing her with any blankets otherwise she denies any headache changes in vision or hearing she denies any fevers she reports some nausea but no vomiting she reports some nonproductive cough denies any chest pain or shortness of breath denies any abdominal pain patient had some soup while here in the hospital tolerated that pretty well she is continued to use her PEG tube for feeding 3 times a day but she doesn't want to have any at this time as she is not tolerating it she denies any GI bleeding denies any diarrhea denies any urinary changes. Patient is not very well engaged with this interview and doesn't seem to be interested in providing further details In the ED blood work overall was unremarkable except for severe hyponatremia ho wever she seems to have hyponatremia from prior admissions Review of Systems Very limited, patient is not engaged in this interview Pertinent positives as noted in HPI. All other systems were reviewed and are negative Past Medical History Past Medical History: Diabetes Mellitus, GERD/Reflux, Osteoarthritis (OA) Additional Past Medical History / Comment(s): neuropathy, falls, throat stricture, scoliosis History of Any Multi-Drug Resistant Organisms: None Reported Past Surgical History: Orthopedic Surgery Additional Past Surgical History / Comment(s): knee surgery, back surgery Past Anesthesia/Blood Transfusion Reactions: No Reported Reaction Past Psychological History: No Psychological Hx Reported Smoking Status: Never smoker Past Alcohol Use History: None Reported Past Drug Use History: None Reported - Past Family History Family Family Medical History: No Reported History Medications and Allergies Home Medications Medication Instructions Recorded Confirmed Type Acetaminophen Tab [Tylenol] 500 mg PO Q6H PRN 08/21/18 05/30/20 History Cyanocobalamin [Vitamin B-12] 1,000 mcg PO DAILY@89905/30/20 05/30/20 History Famotidine 40 mg PO DAILY@89905/30/20 05/30/20 History Jevity 1.5 Clemente Liquid 237 ml PO QID 05/30/20 05/30/20 History Magnesium Oxide [Mag-Ox] 400 mg PO DAILY@0900 05/30/20 05/30/20 History Mirtazapine [Remeron] 15 mg PO HS@2100 05/30/20 05/30/20 History Thiamine [Vitamin B-1] 100 mg PO DAILY@0900 05/30/20 05/30/20 History Allergies Allergy/AdvReac Type Severity Reaction Status Date / Time NSAIDS (Non-Steroidal Allergy Severe Swelling Verified 05/30/20 17:13 Anti-Inflamma clindamycin Allergy Unknown Verified 05/30/20 17:13 codeine Allergy Unknown Verified 05/30/20 17:13 sodium hyaluronate Allergy Unknown Uncoded 05/30/20 15:52 Physical Exam Vitals: Vital Signs Temp Pulse Pulse Resp BP BP Pulse Ox 05/31/20 01:55 98.5 F 73 108/53 92 L 05/30/20 19:37 98.2 F 81 18 105/52 92 L 05/30/20 18:24 100.1 F H 92 18 109/60 05/30/20 17:10 101.4 F H 91 18 135/81 93 L 05/30/20 15:45 102.8 F H 106 H 18 174/84 94 L Intake and Output 05/30/20 05/30/20 05/31/20 14:59 22:59 06:59 Intake Total 125 Balance 125 Intake: Intake, IV Titration 125 Amount Vancomycin 1,250 mg In 125 Sodium Chloride 0.9% 250 ml @ 125 mls/hr IVPB Q12H [facility] Rx#:[id number] Other: Voiding Method Bedpan Diaper Weight 72.575 kg Constitutional: No acute distress, conversant, pleasant Eyes: Anicteric sclerae, moist conjunctiva, Pupils equal round reactive to light ENMT: NC/AT Oropharynx clear, no erythema, or exudates Neck: Supple, FROM, no masses, or JVD No carotid bruits No thyromegaly Lungs: Clear to auscultation Clear to percussion Normal respiratory effort, no accessory muscle use Cardiovascular: Heart regular in rate and rhythm, No murmurs, gallops, or rubs No peripheral edema Abdominal: Soft, PEG tube in place base looks clean and dry and intact Nontender, no guarding, rebound or rigidity Abdomen moving with respiration Normoactive bowel sounds No hepatomegaly, No splenomegaly No palpable mass No abdominal wall hernia noted Skin: Normal temperature, tone, texture, turgor No induration No subcutaneous nodules No rash, lesions No ulcers Extremities: No digital cyanosis No clubbing Pedal pulses intact and symmetrical Radial pulses intact and symmetrical No calf tenderness Psychiatric: Alert and oriented to person, place Appropriate affect fair judgement Neuro Muscles Strength 4/5 in all 4 extremities Sensation to light touch grossly present throughout Cranial nerves II-XII grossly intact No focal sensory deficits Lymphatics: no palpable cervical or supraclavicular , or inguinal lymph nodes Results CBC & Chem 7: 05/30/20 16:18 05/30/20 16:18 Labs: Abnormal Lab Results - Last 24 Hours (Table) 05/30/20 05/30/20 05/30/20 Range/Units 16:18 16:18 16:21 Neutrophils # 9.7 H (1.3-7.7) k/uL Lymphocytes # 0.4 L (1.0-4.8) k/uL Sodium 122 L (137-145) mmol/L Chloride 84 L (98-107) mmol/L Creatinine 0.16 L (0.52-1.04) mg/dL Glucose 164 H (74-99) mg/dL Urine Appearance Turbid H (Clear) Urine Glucose (UA) Trace H (Negative) Ur Leukocyte Esterase Small H (Negative) Amorphous Sediment Few H (None) /hpf Thrombosis Risk Factor Assmnt - Choose All That Apply Each Risk Factor Represents 3 Points: Age 75 years or older Thrombosis Risk Factor Assessment Total Risk Factor Score: 3 Thrombosis Risk Factor Assessment Level: Moderate Risk Assessment and Plan Assessment: Acute metabolic encephalopathy improving Severe hyponatremia acute on chronic Failure to thrive and debility, status post PEG tube Plan Resume home meds Supportive care Encourage by mouth intake Patient declining tube feeding at this time Follow-up electrolytes IV fluid hydration with normal saline Nephro consult Monitor blood sugar Preformed a thorough record review from recent hospitalization about 2 weeks ago where she was admitted for failure to thrive and she had PEG tube inserted May 10, she had hyponatremia and hypomagnesemia that CODE STATUS: Full code DVT prophylaxis: Heparin subcu 3 times a day Discussed with: Patient, ER, RN Anticipated length of stay less than [address]: Rehab A total of 75 minutes was spent on the care of this complex patient more than 50% of the time was spent in counseling and care coordination.
[2020-05-31] MEDS: PIPERACILLIN-TAZOBACTAM 3.375 GM in SODIUM CHLORIDE 0.9% 100 ML IVPB SCH ×3 (04:33→21:08)
[2020-05-31] MEDS: VANCOMYCIN 1,250 MG in SODIUM CHLORIDE 0.9% 250 ML IVPB SCH ×2 (06:06→17:39)
[2020-05-31 07:15] LABS: Glucose,Whole Blood 89 mg/dL (75-99)
[2020-05-31] MEDS: FAMOTIDINE 20 MG TAB PO SCH (08:29)
[2020-05-31] MEDS: HEPARIN SODIUM,PORCINE 5,000 UNIT/ML 1 ML VIAL SQ SCH ×2 (08:30→16:12)
[2020-05-31] MEDS ORDERED: JEVITY CAL PO SCH (09:00)
[2020-05-31 10:36] LABS: Anion Gap 2 mmol/L; Blood Urea Nitrogen 12 mg/dL (7-17); Calcium 8.1 mg/dL (8.4-10.2); Carbon Dioxide 30 mmol/L (22-30); Chloride 95 mmol/L (98-107); Glucose 98 mg/dL (74-99); Potassium 3.7 mmol/L (3.5-5.1); Sodium 127 mmol/L (137-145)
[2020-05-31 10:51] LABS: Basophils % (A) 0 %; Eosinophils % (A) 0 %; HCT 31.7 % (34.0-46.0); HGB 10.4 gm/dL (11.4-16.0); Lymphocytes # (A) 0.7 k/uL (1.0-4.8); Lymphocytes % (A) 9 %; MCH 30.8 pg (25.0-35.0); MCHC 32.7 g/dL (31.0-37.0); MCV 94.4 fL (80.0-100.0); Mean Platelet Volume 7.5; Monocytes # (A) 0.4 k/uL (0-1.0); Monocytes % (A) 6 %; Neutrophils # (A) 6.1 k/uL (1.3-7.7); Neutrophils % (A) 84 %; Platelet Count 276 k/uL (150-450); RBC 3.36 m/uL (3.80-5.40); WBC 7.3 k/uL (3.8-10.6)
[2020-05-31 10:54] LABS: African American GFR (CKD) >90 (>60 ml/min/1.73 sqM); Non-African American GFR(CKD) >90 (>60 ml/min/1.73 sqM)
[2020-05-31 11:45] LABS: Glucose,Whole Blood 91 mg/dL (75-99)
--- NOTE | 2020-05-31 14:55 | P.HPIM ---
History of Present Illness H&P Date: 05/31/20 Chief Complaint: Nausea, chills, cough This is a 79-year-old female patient of Dr. Corcoran currently residing at [facility] for subacute rehab with past medical history of diabetes mellitus type 2, gastroesophageal reflux disease, generalized osteoarthritis, diabetic ne uropathy. 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 Patient was started on Remeron and had PEG tube placed on May 10 and was started on PEG tube feedings. Patient was discharged to [facility] at that time. At the facility she was complaining of feeling nauseated without vomiting. Chills without fever. She did not productive cough. No chest pain or abdominal pain. Patient apparently has not been tolerating feedings through the PEG tube. Patient was found to be febrile at 102.8, heart rate 106, blood pressure 174/84, pulse ox 94% on room air. EKG was sinus tachycardia with no acute ST changes. WBC 10.6, hemoglobin 12.7, platelet count 339. Sodium 122, potassium 4.2, chloride 84, CO2 30, BUN 17 and creatinine 0.17, blood sugar 164. Lactic acid 1.7. Urinalysis turbid, glucose trace, leukoesterase small. KUB revealed nonacute abdomen. Chest x-ray revealed new mild left lower lobe pneumonia. New small pleural effusion. No heart failure. Patient was initially admitted to [facility] and care was transitioned to Dr. Corcoran. 05/31: Patient has been afebrile overnight, heart rate 69, blood pressure 106/52, pulse ox 92% on room air. Repeat blood work reveals WBC 7.3, hemoglobin 10.4, platelet count 276. Sodium 127, potassium 3.7, chloride 95, CO2 30, BUN 12 and creatinine less than 0.15. Blood sugar 98. Patient is currently on IV antibiotics the form of Zosyn and vancomycin. Nephrology is following for hyponatremia. Patient is currently on IV fluids 0.9 normal saline at 70 mL per hour. PEG tube feedings have been resumed. She has been seen by dietitian with recommendations for Jevity continuous feedings with initial rate of 30, increase 15 ML's every 8 hours for goal of 60 ML's per hour with 30 mL water flushes every 4 hours. Case management has discussed discharge planning with the patient and patient does not want to return to [facility]. She normally lives at [facility] and would like to go to her daughter's home at the time of discharge. Daughter discussed with manager rn case. DME ordered. Review of Systems Constitutional: Reports fatigue, Reports poor appetite, Reports weakness, Denies chills, Denies fever Eyes: denies blurred vision, denies pain Ears, nose, mouth and throat: Denies headache, Denies sore throat Cardiovascular: Reports shortness of breath, Denies chest pain, Denies dyspnea on exertion, Denies syncope Respiratory: Reports cough, Reports cough with sputum, Reports dyspnea, Reports respiratory infections, Denies excessive sputum, Denies hemoptysis Gastrointestinal: Denies abdominal pain, Denies diarrhea, Denies melena, Denies nausea, Denies vomiting Genitourinary: Denies dysuria, Denies hematuria, Denies urgency Menstruation: Reports postmenopausal Musculoskeletal: Reports muscle weakness, Denies myalgias Integumentary: Denies pruritus, Denies rash, Denies wounds Neurological: Denies aphasia, Denies change in mentation, Denies change in speech, Denies numbness, Denies seizures, Denies weakness Psychiatric: Denies anxiety, Denies depression Endocrine: Denies fatigue, Denies weight change Past Medical History Past Medical History: Diabetes Mellitus, GERD/Reflux, Osteoarthritis (OA) Additional Past Medical History / Comment(s): neuropathy, falls, throat stricture, scoliosis History of Any Multi-Drug Resistant Organisms: None Reported Past Surgical History: Orthopedic Surgery Additional Past Surgical History / Comment(s): knee surgery, back surgery Past Anesthesia/Blood Transfusion Reactions: No Reported Reaction Past Psychological History: No Psychological Hx Reported Smoking Status: Never smoker Past Alcohol Use History: None Reported Additional Past Alcohol Use History / Comment(s): Patient is a lifelong nonsmoker, no alcohol use, no marijuana or illicit drug use. Past Drug Use History: None Reported - Past Family History Family Family Medical History: No Reported History Father Additional Family Medical History / Comment(s): Father at age 85 from prostate cancer. Mother at age 100 from old age. Patient is 1 brother with no major medical problems. He does have history of dupuytren's contractions. Patient has one sister that has passed with history of smoking and alcohol use. Patient has 3 children. One daughter with no major medical problems. One son with no major medical problems. One son has passed at age 48 from kidney cancer. Medications and Allergies Home Medications Medication Instructions Recorded Confirmed Type Acetaminophen Tab [Tylenol] 500 mg PO Q6H PRN 08/21/18 05/30/20 History Cyanocobalamin [Vitamin B-12] 1,000 mcg PO DAILY@0900 05/30/20 05/30/20 History Famotidine 40 mg PO DAILY@89905/30/20 05/30/20 History Jevity 1.5 Clemente Liquid 237 ml PO QID 05/30/20 05/30/20 History Magnesium Oxide [Mag-Ox] 400 mg PO DAILY@89905/30/20 05/30/20 History Mirtazapine [Remeron] 15 mg PO HS@2100 05/30/20 05/30/20 History Thiamine [Vitamin B-1] 100 mg PO DAILY@0905/30/20 05/30/20 History Allergies Allergy/AdvReac Type Severity Reaction Status Date / Time NSAIDS (Non-Steroidal Allergy Severe Swelling Verified 05/30/20 17:13 Anti-Inflamma clindamycin Allergy Unknown Verified 05/30/20 17:13 codeine Allergy Unknown Verified 05/30/20 17:13 sodium hyaluronate Allergy Unknown Uncoded 05/30/20 15:52 Physical Exam Vitals: Vital Signs Temp Pulse Pulse Resp BP BP Pulse Ox 05/31/20 07:00 98.2 F 69 19 106/52 92 L 05/31/20 01:55 98.5 F 73 108/53 92 L 05/30/20 19:37 98.2 F 81 18 105/52 92 L 05/30/20 18:24 100.1 F H 92 18 109/60 05/30/20 17:10 101.4 F H 91 18 135/81 93 L 05/30/20 15:45 102.8 F H 106 H 18 174/84 94 L Intake and Output 05/30/20 05/31/20 05/31/20 22:59 06:59 14:59 Intake Total 125 Balance 125 Intake: Intake, IV Titration 125 Amount Vancomycin 1,250 mg In 125 Sodium Chloride 0.9% 250 ml @ 125 mls/hr IVPB Q12H [facility] Rx#:[id number] Other: Voiding Method Bedpan Bedpan Diaper Diaper # Voids 4 Weight 72.575 kg 48 kg Physical Examination Gen: This is a frail cachectic appearing 79-year-old female. Patient is resting but appears to be comfortable and in no acute distress. HEENT: Head is atraumatic, normocephalic. Pupils equal, round. Sclerae is anicteric. NECK: Supple. No JVD. No lymphadenopathy. No thyromegaly. LUNGS: Diminished dorsalis pedis +2 bilaterally.. No wheezes or rhonchi. No intercostal retractions. HEART: Regular rate and rhythm. No murmur. ABDOMEN: Soft. Bowel sounds are present. No masses. No tenderness. PEG tube in place, site clean and dry. EXTREMITIES: No pedal edema. No calf tenderness. NEUROLOGICAL: Patient is awake, alert and oriented to person and place. Cranial nerves 2 through 12 are grossly intact. Results CBC & Chem 7: 05/31/20 09:49 05/31/20 09:49 Labs: Abnormal Lab Results - Last 24 Hours (Table) 05/30/20 05/30/20 05/30/20 Range/Units 16:18 16:18 16:21 RBC (3.80-5.40) m/uL Hgb (11.4-16.0) gm/dL Hct (34.0-46.0) % Neutrophils # 9.7 H (1.3-7.7) k/uL Lymphocytes # 0.4 L (1.0-4.8) k/uL Sodium 122 L (137-145) mmol/L Chloride 84 L (98-107) mmol/L Creatinine 0.16 L (0.52-1.04) mg/dL Glucose 164 H (74-99) mg/dL Calcium (8.4-10.2) mg/dL Urine Appearance Turbid H (Clear) Urine Glucose (UA) Trace H (Negative) Ur Leukocyte Esterase Small H (Negative) Amorphous Sediment Few H (None) /hpf 05/31/20 05/31/20 Range/Units 09:49 09:49 RBC 3.36 L (3.80-5.40) m/uL Hgb 10.4 L (11.4-16.0) gm/dL Hct 31.7 L (34.0-46.0) % Neutrophils # (1.3-7.7) k/uL Lymphocytes # 0.7 L (1.0-4.8) k/uL Sodium 127 L (137-145) mmol/L Chloride 95 L (98-107) mmol/L Creatinine <0.15 L (0.52-1.04) mg/dL Glucose (74-99) mg/dL Calcium 8.1 L (8.4-10.2) mg/dL Urine Appearance (Clear) Urine Glucose (UA) (Negative) Ur Leukocyte Esterase (Negative) Amorphous Sediment (None) /hpf Thrombosis Risk Factor Assmnt - DVT/VTE Prophylaxis DVT/VTE Prophylaxis: Pharmacologic Prophylaxis ordered - Choose All That Apply Each Risk Factor Represents 3 Points: Age 75 years or older Thrombosis Risk Factor Assessment Total Risk Factor Score: 3 Thrombosis Risk Factor Assessment Level: Moderate Risk Assessment and Plan Plan: 1. Sepsis secondary to left lower lobe pneumonia, possible gram-negative pneumonia. Continue Zosyn and vancomycin. COVID-19 testing in process. Blood culture is status received. 2. Hyponatremia. Consult with nephrology. Continue IV fluids of 0.9 normal saline at 70 mL per hour. 3. 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 Continue tube feedings per dietitian. 4. Gastroesophageal reflux disease. Continue Pepcid 40 mg daily. 5. Recurrent depression. Continue Remeron 15 mg at bedtime. 6. GI prophylaxis. Pepcid. 7. DVT prophylaxis. Heparin 5000 units subcu every 8 hours. Patient will be admitted to the hospital for a minimum of 2 night stay. Discharge plan: Daughter's home with [facility]. Hospital bed and tube feedings ordered for home. business applications manager following closely. Impression and plan of care have been directed as dictated by the signing physician. Farzaneh Deluna nurse practitioner acting as scribe for signing physician.
--- NOTE | 2020-05-31 15:27 | CONS ---
CONSULTATION REASON FOR CONSULT: Hyponatremia. HISTORY OF PRESENT ILLNESS: The patient is a 79-year-old female who was admitted to the hospital with complaints of weakness and not feeling well. She was also dizzy. The patient resides at [facility] and actually called 911 because she felt she was not getting enough attention. The patient was found to have a serum sodium of 122 on admission. She did admit to decreased oral intake over the past few days as she states that she has had issues with her esophagus. The patient denied any significant diarrhea. She has had a PEG tube placed and was recently started on bolus feeding, but she seemed to not have tolerated it prior to admission. Therefore, they were not continued. The patient states that she has had low sodium before and review of labs shows a previous sodium of about 124 in the earlier part of May. Blood pressure has been slightly on the lower side. PAST MEDICAL HISTORY: Significant for type 2 diabetes, gastroesophageal reflux disease, osteoarthritis, neuropathy, esophageal stricture, scoliosis. PAST SURGICAL HISTORY: Shows knee surgery, back surgery. Details not available. SOCIAL HISTORY: Negative for smoking, drug abuse or alcohol abuse. MEDICATIONS: Medications at home prior to admission included Tylenol, vitamin B, magnesium, Remeron, B1. ALLERGIES: NSAIDS CAUSE SWELLING. CLINDAMYCIN, CODEINE, AND SODIUM HYALURONATE. REVIEW OF SYSTEMS: As per HPI. Other systems negative. EXAMINATION: Patient is comfortable, awake, not in any acute distress. Alert, oriented x3. Blood pressure is 106/52, heart rate 69 per minute, she is afebrile. Examination of the heart S1, S2. Examination of the lungs, bilateral breath sounds are heard. Abdomen is soft, nontender. Examination of lower extremities shows no significant edema. PLANT PRODUCTION WORKER exam grossly intact. LABS: Show sodium 127, potassium 3.7, chloride of 95, BUN 12, creatinine 0.15, hemoglobin 10.4 g/dL. ASSESSMENT: 1. Hypovolemic hyponatremia currently improved with normal saline. The patient increased by about 5 points in 10 hours which is okay. We can continue with the normal saline however I will decrease the rate and once patient will be started on feedings, expect her serum sodium to improve further. 2. Volume depletion now improved. 3. Anemia. Rule out iron deficiency. 4. Fever with chest x-ray showing infiltrates in the left lower lobe. COVID test is negative. Patient has been started on antibiotics. PLAN: Continue antibiotics. Continue normal saline. Repeat sodium this evening. Decrease rate to about 70 mL an hour. Thank you for this consultation. Will continue to follow the patient with you during her hospitalization. MICHAELLE / ENRIQUETA: [id number] /
[2020-05-31 16:32] LABS: Glucose,Whole Blood 122 mg/dL (75-99)
[2020-05-31 18:25] LABS: African American GFR (CKD) >90 (>60 ml/min/1.73 sqM); Anion Gap 5 mmol/L; Blood Urea Nitrogen 11 mg/dL (7-17); Calcium 8.1 mg/dL (8.4-10.2); Carbon Dioxide 28 mmol/L (22-30); Chloride 95 mmol/L (98-107); Glucose 121 mg/dL (74-99); Non-African American GFR(CKD) >90 (>60 ml/min/1.73 sqM); Potassium 3.7 mmol/L (3.5-5.1); Sodium 128 mmol/L (137-145)
[2020-05-31 21:01] LABS: Glucose,Whole Blood 124 mg/dL (75-99)
[2020-05-31] MEDS: MIRTAZAPINE 15 MG TAB PO SCH (21:08)
[2020-06-01] MEDS: HEPARIN SODIUM,PORCINE 5,000 UNIT/ML 1 ML VIAL SQ SCH ×3 (00:24→15:06)
[2020-06-01] MEDS: PIPERACILLIN-TAZOBACTAM 3.375 GM in SODIUM CHLORIDE 0.9% 100 ML IVPB SCH ×3 (04:32→19:48)
[2020-06-01] MEDS: SODIUM CHLORIDE 0.9% 1,000 ML IV SCH ×2 (04:33→22:58)
[2020-06-01] MEDS: VANCOMYCIN 1,250 MG in SODIUM CHLORIDE 0.9% 250 ML IVPB SCH ×2 (06:10→17:30)
[2020-06-01 07:26] LABS: HCT 30.6 % (34.0-46.0); HGB 10.1 gm/dL (11.4-16.0); MCH 31.2 pg (25.0-35.0); MCHC 33.2 g/dL (31.0-37.0); MCV 94.2 fL (80.0-100.0); Platelet Count 266 k/uL (150-450); RBC 3.25 m/uL (3.80-5.40); RDW 12.9 % (11.5-15.5); WBC 5.6 k/uL (3.8-10.6)
[2020-06-01 07:39] LABS: African American GFR (CKD) >90 (>60 ml/min/1.73 sqM); Anion Gap 4 mmol/L; Blood Urea Nitrogen 6 mg/dL (7-17); Calcium 8.1 mg/dL (8.4-10.2); Carbon Dioxide 32 mmol/L (22-30); Chloride 96 mmol/L (98-107); Glucose 126 mg/dL (74-99); Non-African American GFR(CKD) >90 (>60 ml/min/1.73 sqM); Potassium 3.3 mmol/L (3.5-5.1); Sodium 132 mmol/L (137-145)
[2020-06-01] MEDS: FAMOTIDINE 20 MG TAB PO SCH (07:57)
[2020-06-01 09:33] LABS: Glucose,Whole Blood 144 mg/dL (75-99)
[2020-06-01 11:30] LABS: Glucose,Whole Blood 142 mg/dL (75-99)
--- NOTE | 2020-06-01 11:41 | P.PN ---
Subjective Progress Note Date: 06/01/20 This is a 79-year-old female patient of Dr. Corcoran currently residing at [facility] for subacute rehab with past medical history of diabetes mellitus type 2, gastroesophageal reflux disease, generalized osteoarthritis, diabetic neuropathy. 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 Patient was started on Remeron and had PEG tube placed on May 10 and was started on PEG tube feedings. Patient was discharged to [facility] at that time. At the facility she was complaining of feeling nauseated without vomiting. Chills without fever. She did not productive cough. No chest pain or abdominal pain. Patient apparently has not been tolerating feedings through the PEG tube. Patient was found to be febrile at 102.8, heart rate 106, blood pressure 174/84, pulse ox 94% on room air. EKG was sinus tachycardia with no acute ST changes. WBC 10.6, hemoglobin 12.7, platelet count 339. Sodium 122, potassium 4.2, chloride 84, CO2 30, BUN 17 and creatinine 0.17, blood sugar 164. Lactic acid 1.7. Urinalysis turbid, glucose trace, leukoesterase small. KUB revealed nonacute abdomen. Chest x-ray revealed new mild left lower lobe pneumonia. New small pleural effusion. No heart failure. Patient was initially admitted to [facility] and care was transitioned to Dr. Corcoran. 05/31: Patient has been afebrile overnight, heart rate 69, blood pressure 106/52, pulse ox 92% on room air. Repeat blood work reveals WBC 7.3, hemoglobin 10.4, platelet count 276. Sodium 127, potassium 3.7, chloride 95, CO2 30, BUN 12 and creatinine less than 0.15. Blood sugar 98. Patient is currently on IV antibiotics the form of Zosyn and vancomycin. Nephrology is following for hyponatremia. Patient is currently on IV fluids 0.9 normal saline at 70 mL per hour. PEG tube feedings have been resumed. She has been seen by dietitian with recommendations for Jevity continuous feedings with initial rate of 30, increase 15 ML's every 8 hours for goal of 60 ML's per hour with 30 mL water flushes every 4 hours. Case management has discussed discharge planning with the patient and patient does not want to return to [facility]. She normally lives at [facility] and would like to go to her daughter's home at the time of discharge. Daughter discussed with caser in. DME ordered. 06/01: Patient is complaining of increased urinary frequency as well as dysuria she has no fever or chills with the last 24 hours, she is maintained on IV fluid normal saline at 70 mL an hour along with her to feeding at 60 ML per hour along with the water flushes, we will decrease her IV fluid to 50 mL per hour, check a urinalysis and culture, she will be maintained on gentamicin and Zosyn for now, patient denies any chest pain at this time she has no shortness breath, she has no abdominal pain, she seems to be tolerating her treatment very well. Objective - Vital Signs Vital signs: Vital Signs Temp 97.6 F 06/01/20 07:00 Pulse 75 06/01/20 07:00 Resp 18 06/01/20 07:00 BP 162/79 06/01/20 07:00 Pulse Ox 96 06/01/20 07:00 Intake & Output 05/31/20 06/01/20 06/01/20 18:59 06:59 18:59 Weight 48 kg 46 kg Other: Voiding Method Bedpan Bedpan Bedpan Diaper Diaper Diaper # Voids 8 - Exam Review of Systems Constitutional: Reports fatigue, Reports poor appetite, Reports weakness, Denies chills, Denies fever Eyes: denies blurred vision, denies pain Ears, nose, mouth and throat: Denies headache, Denies sore throat Cardiovascular: Reports shortness of breath, Denies chest pain, Denies dyspnea on exertion, Denies syncope Respiratory: Reports cough, Reports cough with sputum, Reports dyspnea, Reports respiratory infections, Denies excessive sputum, Denies hemoptysis Gastrointestinal: Denies abdominal pain, Denies diarrhea, Denies melena, Denies nausea, Denies vomiting Genitourinary: Denies dysuria, Denies hematuria, Denies urgency Menstruation: Reports postmenopausal Musculoskeletal: Reports muscle weakness, Denies myalgias Integumentary: Denies pruritus, Denies rash, Denies wounds Neurological: Denies aphasia, Denies change in mentation, Denies change in speech, Denies numbness, Denies seizures, Denies weakness Psychiatric: Denies anxiety, Denies depression Endocrine: Denies fatigue, Denies weight change Physical Examination Gen: This is a frail cachectic appearing 79-year-old female. Patient is resting but appears to be comfortable and in no acute distress. HEENT: Head is atraumatic, normocephalic. Pupils equal, round. Sclerae is anicteric. NECK: Supple. No JVD. No lymphadenopathy. No thyromegaly. LUNGS: Diminished dorsalis pedis +2 bilaterally.. No wheezes or rhonchi. No intercostal retractions. HEART: Regular rate and rhythm. No murmur. ABDOMEN: Soft. Bowel sounds are present. No masses. No tenderness. PEG tube in place, site clean and dry. EXTREMITIES: No pedal edema. No calf tenderness. NEUROLOGICAL: Patient is awake, alert and oriented to person and place. Cranial nerves 2 through 12 are grossly intact. - Labs CBC & Chem 7: 06/01/20 06:32 06/01/20 06:32 Labs: Abnormal Lab Results - Last 24 Hours (Table) 05/31/20 05/31/20 05/31/20 Range/Units 16:31 17:46 21:00 RBC (3.80-5.40) m/uL Hgb (11.4-16.0) gm/dL Hct (34.0-46.0) % Sodium 128 L (137-145) mmol/L Potassium (3.5-5.1) mmol/L Chloride 95 L (98-107) mmol/L Carbon Dioxide (22-30) mmol/L BUN (7-17) mg/dL Creatinine 0.16 L (0.52-1.04) mg/dL Glucose 121 H (74-99) mg/dL POC Glucose (mg/dL) 122 H 124 H (75-99) mg/dL Calcium 8.1 L (8.4-10.2) mg/dL 06/01/20 06/01/20 06/01/20 Range/Units 06:32 06:32 09:33 RBC 3.25 L (3.80-5.40) m/uL Hgb 10.1 L (11.4-16.0) gm/dL Hct 30.6 L (34.0-46.0) % Sodium 132 L (137-145) mmol/L Potassium 3.3 L (3.5-5.1) mmol/L Chloride 96 L (98-107) mmol/L Carbon Dioxide 32 H (22-30) mmol/L BUN 6 L (7-17) mg/dL Creatinine 0.17 L (0.52-1.04) mg/dL Glucose 126 H (74-99) mg/dL POC Glucose (mg/dL) 144 H (75-99) mg/dL Calcium 8.1 L (8.4-10.2) mg/dL Microbiology - Last 24 Hours (Table) 05/30/20 18:22 Blood Culture - Preliminary Blood No Growth after 24 hours Assessment and Plan Assessment: Assessment and Plan Plan: 1. Sepsis secondary to left lower lobe pneumonia, possible gram-negative pneumonia. Continue Zosyn and vancomycin pharmacy to dose his peak and trough, Covid-19 still pending, blood cultures are pending. 2. Hypovolemic hyponatremia.. Continue decrease IV fluid normal saline at 50 mL per hour. Repeat CMP tomorrow morning. 3. 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 Continue with tube feeding a 6 mL per hour. Continue Remeron 15 mg orally once every day. 4. Gastroesophageal reflux disease. Continue Pepcid 40 mg daily. 5. Recurrent depression. Continue Remeron 15 mg at bedtime. 6. GI prophylaxis. Pepcid 40 mg orally once every day. 7. DVT prophylaxis. Heparin 5000 units subcu every 8 hours. 8. Medical debility. PT consult. 9. Plan to discharge home with daughter and [facility].
[2020-06-01] MEDS ORDERED: POTASSIUM CHLORIDE 20 MEQ in WATER FOR INJECTION 1 100ML.BAG IVPB ONE (12:00)
[2020-06-01 16:59] LABS: Glucose,Whole Blood 139 mg/dL (75-99)
[2020-06-01] MEDS ORDERED: VANCOMYCIN TROUGH DUE 1 EACH MISC MISCELLANE ONE (17:00)
[2020-06-01] MEDS: ACETAMINOPHEN TAB 325 MG TAB PO PRN (17:48)
[2020-06-01] MEDS: MIRTAZAPINE 15 MG TAB PO SCH (19:48)
[2020-06-01 20:46] LABS: Glucose,Whole Blood 139 mg/dL (75-99)
[2020-06-02] MEDS: HEPARIN SODIUM,PORCINE 5,000 UNIT/ML 1 ML VIAL SQ SCH ×3 (01:02→15:55)
[2020-06-02] MEDS: VANCOMYCIN 1,000 MG in SODIUM CHLORIDE 0.9% 250 ML IVPB SCH ×3 (02:47→17:34)
[2020-06-02] MEDS: PIPERACILLIN-TAZOBACTAM 3.375 GM in SODIUM CHLORIDE 0.9% 100 ML IVPB SCH ×3 (04:39→19:42)
[2020-06-02 06:50] LABS: Appearance,Urine Clear (Clear); Bilirubin,Urine Negative (Negative); Blood,Urine Negative (Negative); Color,Urine Light Yellow; Glucose,Urine (UA) Negative (Negative); Ketones,Urine Negative (Negative); Leukocyte Esterase,Urine Negative (Negative); Nitrite,Urine Negative (Negative); PH, Urine 7.5 (5.0-8.0); Protein,Urine Negative (Negative); Specific Gravity,Urine 1.008 (1.001-1.035); Urobilinogen,Urine <2.0 mg/dL (<2.0)
[2020-06-02 07:02] LABS: Basophils % (A) 1 %; Eosinophils % (A) 1 %; HCT 36.8 % (34.0-46.0); HGB 12.1 gm/dL (11.4-16.0); Lymphocytes % (A) 18 %; MCH 30.9 pg (25.0-35.0); MCHC 32.8 g/dL (31.0-37.0); MCV 94.2 fL (80.0-100.0); Mean Platelet Volume 7.2; Monocytes # (A) 0.5 k/uL (0-1.0); Monocytes % (A) 8 %; Neutrophils % (A) 72 %; Platelet Count 270 k/uL (150-450); RBC 3.91 m/uL (3.80-5.40); RDW 12.9 % (11.5-15.5); WBC 5.6 k/uL (3.8-10.6)
[2020-06-02 07:15] LABS: Glucose,Whole Blood 151 mg/dL (75-99)
[2020-06-02 07:19] LABS: ALT 15 U/L (4-34); AST 18 U/L (14-36); African American GFR (CKD) >90 (>60 ml/min/1.73 sqM); Albumin 3.3 g/dL (3.5-5.0); Alkaline Phosphatase 60 U/L (38-126); Anion Gap 7 mmol/L; Blood Urea Nitrogen 9 mg/dL (7-17); Calcium 8.6 mg/dL (8.4-10.2); Carbon Dioxide 32 mmol/L (22-30); Chloride 94 mmol/L (98-107); Glucose 134 mg/dL (74-99); Magnesium 1.7 mg/dL (1.6-2.3); Non-African American GFR(CKD) >90 (>60 ml/min/1.73 sqM); Potassium 3.6 mmol/L (3.5-5.1); Sodium 133 mmol/L (137-145); Total Bilirubin 0.4 mg/dL (0.2-1.3); Total Protein 5.9 g/dL (6.3-8.2)
[2020-06-02] MEDS: FAMOTIDINE 20 MG TAB PO SCH (08:20)
[2020-06-02] MEDS: ACETAMINOPHEN TAB 325 MG TAB PO PRN (08:24)
[2020-06-02] MEDS: PHENAZOPYRIDINE 100 MG TAB PO SCH ×3 (09:56→19:41)
[2020-06-02 11:22] LABS: Glucose,Whole Blood 151 mg/dL (75-99)
--- NOTE | 2020-06-02 11:42 | P.PN ---
Subjective Progress Note Date: 06/02/20 This is a 79-year-old female patient of Dr. Corcoran currently residing at [facility] for subacute rehab with past medical history of diabetes mellitus type 2, gastroesophageal reflux disease, generalized osteoarthritis, diabetic neuropathy. 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 Patient was started on Remeron and had PEG tube placed on May 10 and was started on PEG tube feedings. Patient was discharged to [facility] at that time. At the facility she was complaining of feeling nauseated without vomiting. Chills without fever. She did not productive cough. No chest pain or abdominal pain. Patient apparently has not been tolerating feedings through the PEG tube. Patient was found to be febrile at 102.8, heart rate 106, blood pressure 174/84, pulse ox 94% on room air. EKG was sinus tachycardia with no acute ST changes. WBC 10.6, hemoglobin 12.7, platelet count 339. Sodium 122, potassium 4.2, chloride 84, CO2 30, BUN 17 and creatinine 0.17, blood sugar 164. Lactic acid 1.7. Urinalysis turbid, glucose trace, leukoesterase small. KUB revealed nonacute abdomen. Chest x-ray revealed new mild left lower lobe pneumonia. New small pleural effusion. No heart failure. Patient was initially admitted to [facility] [place] 2] and care was transitioned to Dr. Corcoran. 05/31: Patient has been afebrile overnight, heart rate 69, blood pressure 106/52, pulse ox 92% on room air. Repeat blood work reveals WBC 7.3, hemoglobin 10.4, platelet count 276. Sodium 127, potassium 3.7, chloride 95, CO2 30, BUN 12 and creatinine less than 0.15. Blood sugar 98. Patient is currently on IV antibiotics the form of Zosyn and vancomycin. Nephrology is following for hyponatremia. Patient is currently on IV fluids 0.9 normal saline at 70 mL per hour. PEG tube feedings have been resumed. She has been seen by dietitian with recommendations for Jevity continuous feedings with initial rate of 30, increase 15 ML's every 8 hours for goal of 60 ML's per hour with 30 mL water flushes every 4 hours. Case management has discussed discharge planning with the patient and patient does not want to return to [facility]. She normally lives at [facility] and would like to go to her daughter's home at the time of discharge. Daughter discussed with foster care case manager. DME ordered. 06/01: Patient is complaining of increased urinary frequency as well as dysuria she has no fever or chills with the last 24 hours, she is maintained on IV fluid normal saline at 70 mL an hour along with her to feeding at 60 ML per hour along with the water flushes, we will decrease her IV fluid to 50 mL per hour, check a urinalysis and culture, she will be maintained on gentamicin and Zosyn for now, patient denies any chest pain at this time she has no shortness breath, she has no abdominal pain, she seems to be tolerating her treatment very well. 06/02: Patient is laying down in bed in no apparent distress, she had not slept well yesterday because of increased urinary frequency, she has a bit of dysuria her urinalysis totally normal, decrease her IV fluid only to KVO, start the patient on Pyridium 100 mg orally 3 times every day, we will start the patient on bethanechol 25 mg orally 3 times every day to try to help reducing the overactive bladder, she is not a good candidate for anticholinergics due to the risk of fall as well as her dry mouth and tremors. Objective - Vital Signs Vital signs: Vital Signs Temp 98.3 F 06/02/20 07:00 Pulse 80 06/02/20 07:00 Resp 18 06/02/20 07:00 BP 175/94 06/02/20 07:00 Pulse Ox 94 L 06/02/20 07:00 Intake & Output 06/01/20 06/02/20 06/02/20 18:59 06:59 18:59 Weight 47.174 kg Other: Voiding Method Bedpan Bedpan Bedpan Diaper Diaper Diaper # Voids 5 - Exam Review of Systems Constitutional: Reports fatigue, Reports poor appetite, Reports weakness, Denies chills, Denies fever Eyes: denies blurred vision, denies pain Ears, nose, mouth and throat: Denies headache, Denies sore throat Cardiovascular: Reports shortness of breath, Denies chest pain, Denies dyspnea on exertion, Denies syncope Respiratory: Reports cough, Reports cough with sputum, Reports dyspnea, Reports respiratory infections, Denies excessive sputum, Denies hemoptysis Gastrointestinal: Denies abdominal pain, Denies diarrhea, Denies melena, Denies nausea, Denies vomiting Genitourinary: Denies dysuria, Denies hematuria, Denies urgency Menstruation: Reports postmenopausal Musculoskeletal: Reports muscle weakness, Denies myalgias Integumentary: Denies pruritus, Denies rash, Denies wounds Neurological: Denies aphasia, Denies change in mentation, Denies change in s peech, Denies numbness, Denies seizures, Denies weakness Psychiatric: Denies anxiety, Denies depression Endocrine: Denies fatigue, Denies weight change Physical Examination Gen: This is a frail cachectic appearing 79-year-old female. Patient is resting but appears to be comfortable and in no acute distress. HEENT: Head is atraumatic, normocephalic. Pupils equal, round. Sclerae is anicteric. NECK: Supple. No JVD. No lymphadenopathy. No thyromegaly. LUNGS: Diminished dorsalis pedis +2 bilaterally.. No wheezes or rhonchi. No intercostal retractions. HEART: Regular rate and rhythm. No murmur. ABDOMEN: Soft. Bowel sounds are present. No masses. No tenderness. PEG tube in place, site clean and dry. EXTREMITIES: No pedal edema. No calf tenderness. NEUROLOGICAL: Patient is awake, alert and oriented to person and place. Cranial nerves 2 through 12 are grossly intact. - Labs CBC & Chem 7: 06/02/20 06:10 06/02/20 06:10 Labs: Abnormal Lab Results - Last 24 Hours (Table) 06/01/20 06/01/20 06/01/20 Range/Units 11:28 16:57 20:42 Sodium (137-145) mmol/L Chloride (98-107) mmol/L Carbon Dioxide (22-30) mmol/L Creatinine (0.52-1.04) mg/dL Glucose (74-99) mg/dL POC Glucose (mg/dL) 142 H 139 H 139 H (75-99) mg/dL Total Protein (6.3-8.2) g/dL Albumin (3.5-5.0) g/dL 06/02/20 06/02/20 Range/Units 06:10 07:13 Sodium 133 L (137-145) mmol/L Chloride 94 L (98-107) mmol/L Carbon Dioxide 32 H (22-30) mmol/L Creatinine 0.18 L (0.52-1.04) mg/dL Glucose 134 H (74-99) mg/dL POC Glucose (mg/dL) 151 H (75-99) mg/dL Total Protein 5.9 L (6.3-8.2) g/dL Albumin 3.3 L (3.5-5.0) g/dL Microbiology - Last 24 Hours (Table) 05/30/20 18:22 Blood Culture - Preliminary Blood No Growth after 48 hours Assessment and Plan Assessment: Assessment and Plan Plan: 1. Sepsis secondary to left lower lobe pneumonia, possible gram-negative pneumonia. Continue Zosyn and vancomycin pharmacy to dose his peak and trough, Covid-19 still pending, blood cultures are pending. 2. Hypovolemic hyponatremia.. Continue decrease IV fluid normal saline at 50 mL per hour. Repeat CMP tomorrow morning. 3. 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 Continue with tube feeding a 6 mL per hour. Continue Remeron 15 mg orally once every day. 4. Gastroesophageal reflux disease. Continue Pepcid 40 mg daily. 5. Recurrent depression. Continue Remeron 15 mg at bedtime. 6. GI prophylaxis. Pepcid 40 mg orally once every day. 7. DVT prophylaxis. Heparin 5000 units subcu every 8 hours. 8. Medical debility. PT consult. 9. Urinary frequency without evidence of UTI. Start the patient on bethanechol and 25 mg orally 3 times a day as well as Pyridium 100 mg orally 3 times every day.
[2020-06-02] MEDS: BETHANECHOL 25 MG TAB PO SCH ×2 (15:55→19:41)
[2020-06-02] MEDS: SODIUM CHLORIDE 0.9% 1,000 ML IV SCH (16:28)
[2020-06-02 16:42] LABS: Glucose,Whole Blood 117 mg/dL (75-99)
[2020-06-02] MEDS: MIRTAZAPINE 15 MG TAB PO SCH (19:42)
[2020-06-02 20:37] LABS: Glucose,Whole Blood 152 mg/dL (75-99)
[2020-06-03] MEDS: HEPARIN SODIUM,PORCINE 5,000 UNIT/ML 1 ML VIAL SQ SCH ×4 (01:04→23:37)
[2020-06-03] MEDS: VANCOMYCIN 1,000 MG in SODIUM CHLORIDE 0.9% 250 ML IVPB SCH ×3 (02:23→22:41)
[2020-06-03] MEDS: PIPERACILLIN-TAZOBACTAM 3.375 GM in SODIUM CHLORIDE 0.9% 100 ML IVPB SCH ×3 (04:56→19:37)
[2020-06-03 06:58] LABS: Glucose,Whole Blood 139 mg/dL (75-99)
[2020-06-03] MEDS: FAMOTIDINE 20 MG TAB PO SCH (08:06)
[2020-06-03] MEDS: ACETAMINOPHEN TAB 325 MG TAB PO PRN (08:07)
[2020-06-03] MEDS: PHENAZOPYRIDINE 100 MG TAB PO SCH ×3 (08:07→20:38)
[2020-06-03] MEDS: BETHANECHOL 25 MG TAB PO SCH ×3 (08:07→20:38)
[2020-06-03] MEDS ORDERED: VANCOMYCIN TROUGH DUE 1 EACH MISC MISCELLANE ONE (09:00)
[2020-06-03 09:35] LABS: Basophils % (A) 0 %; Eosinophils % (A) 1 %; HCT 36.6 % (34.0-46.0); HGB 11.9 gm/dL (11.4-16.0); Lymphocytes # (A) 0.6 k/uL (1.0-4.8); Lymphocytes % (A) 11 %; MCH 30.6 pg (25.0-35.0); MCHC 32.5 g/dL (31.0-37.0); Mean Platelet Volume 7.1; Monocytes # (A) 0.6 k/uL (0-1.0); Monocytes % (A) 9 %; Neutrophils # (A) 4.6 k/uL (1.3-7.7); Neutrophils % (A) 78 %; Platelet Count 269 k/uL (150-450); RDW 12.9 % (11.5-15.5); WBC 5.9 k/uL (3.8-10.6)
[2020-06-03 09:53] LABS: ALT 14 U/L (4-34); AST 18 U/L (14-36); African American GFR (CKD) >90 (>60 ml/min/1.73 sqM); Albumin 3.2 g/dL (3.5-5.0); Alkaline Phosphatase 58 U/L (38-126); Anion Gap 6 mmol/L; Blood Urea Nitrogen 13 mg/dL (7-17); Calcium 8.8 mg/dL (8.4-10.2); Carbon Dioxide 32 mmol/L (22-30); Chloride 95 mmol/L (98-107); Glucose 122 mg/dL (74-99); Non-African American GFR(CKD) >90 (>60 ml/min/1.73 sqM); Potassium 3.8 mmol/L (3.5-5.1); Sodium 133 mmol/L (137-145); Total Bilirubin 0.3 mg/dL (0.2-1.3); Total Protein 5.8 g/dL (6.3-8.2)
--- NOTE | 2020-06-03 10:24 | XR ---
EXAMINATION TYPE: XR chest 1V DATE OF EXAM: 06/03/2020 COMPARISON: 05/30/2020 HISTORY: 79-year-old female pneumonia, cough TECHNIQUE: Single frontal view of the chest is obtained. FINDINGS: Heart normal size. Aorta and pulmonary vasculature within normal limits. Focal retrocardiac opacity r emains. No pleural effusion. IMPRESSION: Some persistent focal patchy retrocardiac opacity could represent residual pneumonia. No sizable effu michael on the frontal view.
[2020-06-03 11:12] LABS: Glucose,Whole Blood 111 mg/dL (75-99)
[2020-06-03] MEDS: SODIUM CHLORIDE 0.9% 1,000 ML IV SCH (11:40)
[2020-06-03 16:28] LABS: Glucose,Whole Blood 160 mg/dL (75-99)
--- NOTE | 2020-06-03 18:26 | P.PN ---
Subjective Progress Note Date: 06/03/20 This is a 79-year-old female patient of Dr. Corcoran currently residing at [facility] for subacute rehab with past medical history of diabetes mellitus type 2, gastroesophageal reflux disease, generalized osteoarthritis, diabetic neuropathy. 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 Patient was started on Remeron and had PEG tube placed on May 10 and was started on PEG tube feedings. Patient was discharged to [facility] at that time. At the facility she was complaining of feeling nauseated without vomiting. Chills without fever. She did not productive cough. No chest pain or abdominal pain. Patient apparently has not been tolerating feedings through the PEG tube. Patient was found to be febrile at 102.8, heart rate 106, blood pressure 174/84, pulse ox 94% on room air. EKG was sinus tachycardia with no acute ST changes. WBC 10.6, hemoglobin 12.7, platelet count 339. Sodium 122, potassium 4.2, chloride 84, CO2 30, BUN 17 and creatinine 0.17, blood sugar 164. Lactic acid 1.7. Urinalysis turbid, glucose trace, leukoesterase small. KUB revealed nonacute abdomen. Chest x-ray revealed new mild left lower lobe pneumonia. New small pleural effusion. No heart failure. Patient was initially admitted to [facility] and care was transitioned to Dr. Corcoran. 05/31: Patient has been afebrile overnight, heart rate 69, blood pressure 106/52, pulse ox 92% on room air. Repeat blood work reveals WBC 7.3, hemoglobin 10.4, platelet count 276. Sodium 127, potassium 3.7, chloride 95, CO2 30, BUN 12 and creatinine less than 0.15. Blood sugar 98. Patient is currently on IV antibiotics the form of Zosyn and vancomycin. Nephrology is following for hyponatremia. Patient is currently on IV fluids 0.9 normal saline at 70 mL per hour. PEG tube feedings have been resumed. She has been seen by dietitian with recommendations for Jevity continuous feedings with initial rate of 30, increase 15 ML's every 8 hours for goal of 60 ML's per hour with 30 mL water flushes every 4 hours. Case management has discussed discharge planning with the patient and patient does not want to return to [facility]. She normally lives at [facility] and would like to go to her daughter's home at the time of discharge. Daughter discussed with adult protective caseworker. DME ordered. 06/01: Patient is complaining of increased urinary frequency as well as dysuria she has no fever or chills with the last 24 hours, she is maintained on IV fluid normal saline at 70 mL an hour along with her to feeding at 60 ML per hour along with the water flushes, we will decrease her IV fluid to 50 mL per hour, check a urinalysis and culture, she will be maintained on gentamicin and Zosyn for now, patient denies any chest pain at this time she has no shortness breath, she has no abdominal pain, she seems to be tolerating her treatment very well. 06/02: Patient is laying down in bed in no apparent distress, she had not slept well yesterday because of increased urinary frequency, she has a bit of dysuria her urinalysis totally normal, decrease her IV fluid only to KVO, start the patient on Pyridium 100 mg orally 3 times every day, we will start the patient on bethanechol 25 mg orally 3 times every day to try to help reducing the overactive bladder, she is not a good candidate for anticholinergics due to the risk of fall as well as her dry mouth and tremors. 06/03: Patient is doing better today, less urinary frequency, no chest pain or shortness of breath, slept better last night, still gettibg Tube feeding and IV antibiotics, we will repeat CXR today. Objective - Vital Signs Vital signs: Vital Signs Temp 98.5 F 06/03/20 07:00 Pulse 74 06/03/20 07:00 Resp 15 06/03/20 07:00 BP 165/81 06/03/20 07:00 Pulse Ox 95 06/03/20 07:00 Intake & Output 06/02/20 06/03/20 06/03/20 18:59 06:59 18:59 Intake Total 100 Balance 100 Weight 47.174 kg Intake: Oral 100 Other: Voiding Method Bedpan Bedpan Bedpan Diaper Diaper Diaper # Voids 4 - Exam Review of Systems Constitutional: Reports fatigue, Reports poor appetite, Reports weakness, Denies chills, Denies fever Eyes: denies blurred vision, denies pain Ears, nose, mouth and throat: Denies headache, Denies sore throat Cardiovascular: Reports shortness of breath, Denies chest pain, Denies dyspnea on exertion, Denies syncope Respiratory: Reports cough, Reports cough with sputum, Reports dyspnea, Reports respiratory infections, Denies excessive sputum, Denies hemoptysis Gastrointestinal: Denies abdominal pain, Denies diarrhea, Denies melena, Denies nausea, Denies vomiting Genitourinary: Denies dysuria, Denies hematuria, Denies urgency Menstruation: Reports postmenopausal Musculoskeletal: Reports muscle weakness, Denies myalgias Integumentary: Denies pruritus, Denies rash, Denies wounds Neurological: Denies aphasia, Denies change in mentation, Denies change in speech, Denies numbness, Denies seizures, Denies weakness Psychiatric: Denies anxiety, Denies depression Endocrine: Denies fatigue, Denies weight change Physical Examination Gen: This is a frail cachectic appearing 79-year-old female. Patient is resting but appears to be comfortable and in no acute distress. HEENT: Head is atraumatic, normocephalic. Pupils equal, round. Sclerae is anicteric. NECK: Supple. No JVD. No lymphadenopathy. No thyromegaly. LUNGS: Diminished dorsalis pedis +2 bilaterally.. No wheezes or rhonchi. No intercostal retractions. HEART: Regular rate and rhythm. No murmur. ABDOMEN: Soft. Bowel sounds are present. No masses. No tenderness. PEG tube in place, site clean and dry. EXTREMITIES: No pedal edema. No calf tenderness. NEUROLOGICAL: Patient is awake, alert and oriented to person and place. Cranial nerves 2 through 12 are grossly intact. - Labs CBC & Chem 7: 06/03/20 09:05 06/03/20 09:05 Labs: Abnormal Lab Results - Last 24 Hours (Table) 06/02/20 06/02/20 06/02/20 Range/Units 11:21 16:40 20:27 POC Glucose (mg/dL) 151 H 117 H 152 H (75-99) mg/dL 06/03/20 Range/Units 06:56 POC Glucose (mg/dL) 139 H (75-99) mg/dL Microbiology - Last 24 Hours (Table) 05/30/20 18:22 Blood Culture - Preliminary Blood No Growth after 72 hours Assessment and Plan Assessment: Assessment and Plan Plan: 1. Sepsis secondary to left lower lobe pneumonia, possible gram-negative pneumonia. Continue Zosyn and vancomycin pharmacy to dose his peak and trough, Covid-19 still pending, blood cultures are pending. 2. Hypovolemic hyponatremia.. Continue decrease IV fluid normal saline at 50 mL per hour. Repeat CMP tomorrow morning. 3. 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 Continue with tube feeding a 6 mL per hour. Continue Remeron 15 mg orally once every day. 4. Gastroesophageal reflux disease. Continue Pepcid 40 mg daily. 5. Recurrent depression. Continue Remeron 15 mg at bedtime. 6. GI prophylaxis. Pepcid 40 mg orally once every day. 7. DVT prophylaxis. Heparin 5000 units subcu every 8 hours. 8. Medical debility. PT consult. 9. Urinary frequency without evidence of UTI. Start the patient on bethanechol and 25 mg orally 3 times a day as well as Pyridium 100 mg orally 3 times every day. 10. we will repeat CXR today. 11. Home with PT in 48 hours.
[2020-06-03 20:35] LABS: Glucose,Whole Blood 129 mg/dL (75-99)
[2020-06-03] MEDS: MIRTAZAPINE 15 MG TAB PO SCH (20:38)
[2020-06-04] MEDS: PIPERACILLIN-TAZOBACTAM 3.375 GM in SODIUM CHLORIDE 0.9% 100 ML IVPB SCH ×3 (04:22→19:57)
[2020-06-04 07:27] LABS: Glucose,Whole Blood 148 mg/dL (75-99)
[2020-06-04 08:25] LABS: Basophils % (A) 1 %; Eosinophils % (A) 1 %; HCT 38.3 % (34.0-46.0); HGB 12.5 gm/dL (11.4-16.0); Lymphocytes # (A) 0.7 k/uL (1.0-4.8); Lymphocytes % (A) 16 %; MCH 31.1 pg (25.0-35.0); MCHC 32.5 g/dL (31.0-37.0); MCV 95.6 fL (80.0-100.0); Monocytes # (A) 0.5 k/uL (0-1.0); Monocytes % (A) 11 %; Neutrophils # (A) 3.4 k/uL (1.3-7.7); Neutrophils % (A) 71 %; Platelet Count 292 k/uL (150-450); RBC 4.01 m/uL (3.80-5.40); RDW 12.9 % (11.5-15.5); WBC 4.8 k/uL (3.8-10.6)
[2020-06-04 08:28] LABS: ALT 13 U/L (4-34); AST 19 U/L (14-36); African American GFR (CKD) >90 (>60 ml/min/1.73 sqM); Albumin 3.3 g/dL (3.5-5.0); Alkaline Phosphatase 57 U/L (38-126); Anion Gap 6 mmol/L; Blood Urea Nitrogen 15 mg/dL (7-17); Calcium 8.8 mg/dL (8.4-10.2); Carbon Dioxide 32 mmol/L (22-30); Chloride 97 mmol/L (98-107); Glucose 124 mg/dL (74-99); Non-African American GFR(CKD) >90 (>60 ml/min/1.73 sqM); Potassium 3.6 mmol/L (3.5-5.1); Sodium 135 mmol/L (137-145); Total Bilirubin 0.3 mg/dL (0.2-1.3); Total Protein 5.7 g/dL (6.3-8.2)
[2020-06-04] MEDS: VANCOMYCIN 1,000 MG in SODIUM CHLORIDE 0.9% 250 ML IVPB SCH ×2 (09:39→21:43)
[2020-06-04] MEDS: FAMOTIDINE 20 MG TAB PO SCH (09:39)
[2020-06-04] MEDS: PHENAZOPYRIDINE 100 MG TAB PO SCH ×3 (09:39→21:43)
[2020-06-04] MEDS: SODIUM CHLORIDE 0.9% 1,000 ML IV SCH (09:40)
[2020-06-04] MEDS: BETHANECHOL 25 MG TAB PO SCH ×3 (09:40→21:43)
[2020-06-04] MEDS: HEPARIN SODIUM,PORCINE 5,000 UNIT/ML 1 ML VIAL SQ SCH ×3 (09:40→23:04)
[2020-06-04 11:51] LABS: Glucose,Whole Blood 139 mg/dL (75-99)
--- NOTE | 2020-06-04 12:59 | P.PN ---
Subjective Progress Note Date: 06/04/20 This is a 79-year-old female patient of Dr. Corcoran currently residing at [facility] for subacute rehab with past medical history of diabetes mellitus type 2, gastroesophageal reflux disease, generalized osteoarthritis, diabetic neuropathy. 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 Patient was started on Remeron and had PEG tube placed on May 10 and was started on PEG tube feedings. Patient was discharged to [facility] at that time. At the facility she was complaining of feeling nauseated without vomiting. Chills without fever. She did not productive cough. No chest pain or abdominal pain. Patient apparently has not been tolerating feedings through the PEG tube. Patient was found to be febrile at 102.8, heart rate 106, blood pressure 174/84, pulse ox 94% on room air. EKG was sinus tachycardia with no acute ST changes. WBC 10.6, hemoglobin 12.7, platelet count 339. Sodium 122, potassium 4.2, chloride 84, CO2 30, BUN 17 and creatinine 0.17, blood sugar 164. Lactic acid 1.7. Urinalysis turbid, glucose trace, leukoesterase small. KUB revealed nonacute abdomen. Chest x-ray revealed new mild left lower lobe pneumonia. New small pleural effusion. No heart failure. Patient was initially admitted to [facility] and care was transitioned to Dr. Corcoran. 05/31: Patient has been afebrile overnight, heart rate 69, blood pressure 106/52, pulse ox 92% on room air. Repeat blood work reveals WBC 7.3, hemoglobin 10.4, platelet count 276. Sodium 127, potassium 3.7, chloride 95, CO2 30, BUN 12 and creatinine less than 0.15. Blood sugar 98. Patient is currently on IV antibiotics the form of Zosyn and vancomycin. Nephrology is following for hyponatremia. Patient is currently on IV fluids 0.9 normal saline at 70 mL per hour. PEG tube feedings have been resumed. She has been seen by dietitian with recommendations for Jevity continuous feedings with initial rate of 30, increase 15 ML's every 8 hours for goal of 60 ML's per hour with 30 mL water flushes every 4 hours. Case management has discussed discharge planning with the patient and patient does not want to return to [facility]. She normally lives at [facility] and would like to go to her daughter's home at the time of discharge. Daughter discussed with behavioral health case manager. DME ordered. 06/01: Patient is complaining of increased urinary frequency as well as dysuria she has no fever or chills with the last 24 hours, she is maintained on IV fluid normal saline at 70 mL an hour along with her to feeding at 60 ML per hour along with the water flushes, we will decrease her IV fluid to 50 mL per hour, check a urinalysis and culture, she will be maintained on gentamicin and Zosyn for now, patient denies any chest pain at this time she has no shortness breath, she has no abdominal pain, she seems to be tolerating her treatment very well. 06/02: Patient is laying down in bed in no apparent distress, she had not slept well yesterday because of increased urinary frequency, she has a bit of dysuria her urinalysis totally normal, decrease her IV fluid only to KVO, start the patient on Pyridium 100 mg orally 3 times every day, we will start the patient on bethanechol 25 mg orally 3 times every day to try to help reducing the overactive bladder, she is not a good candidate for anticholinergics due to the risk of fall as well as her dry mouth and tremors. 06/03: Patient is doing better today, less urinary frequency, no chest pain or shortness of breath, slept better last night, still gettibg Tube feeding and IV antibiotics, we will repeat CXR today. 06/04:patient is doing much better today she is emulating using her walker, she is trying to eat some soft diet, she continues into feeding, she denies any abd ominal pain, she has no urinary frequency, most likely she will be discharged home tomorrow morning with physical therapy. Objective - Vital Signs Vital signs: Vital Signs Temp 98.9 F 06/04/20 01:45 Pulse 79 06/04/20 04:00 Resp 16 06/04/20 04:00 BP 135/67 06/04/20 01:45 Pulse Ox 93 L 06/04/20 01:45 Intake & Output 06/03/20 06/03/20 06/04/20 06:59 18:59 06:59 Intake Total 100 100 Output Total 650 2400 Balance 100 -650 -2300 Intake: Oral 100 100 Output: Urine 650 2400 Other: Voiding Method Bedpan Bedpan Bedpan Diaper Diaper Diaper # Voids 4 1 # Bowel Movements 1 - Exam Review of Systems Constitutional: Reports fatigue, Reports poor appetite, Reports weakness, Denies chills, Denies fever Eyes: denies blurred vision, denies pain Ears, nose, mouth and throat: Denies headache, Denies sore throat Cardiovascular: Reports shortness of breath, Denies chest pain, Denies dyspnea on exertion, Denies syncope Respiratory: Reports cough, Reports cough with sputum, Reports dyspnea, Reports respiratory infections, Denies excessive sputum, Denies hemoptysis Gastrointestinal: Denies abdominal pain, Denies diarrhea, Denies melena, Denies nausea, Denies vomiting Genitourinary: Denies dysuria, Denies hematuria, Denies urgency Menstruation: Reports postmenopausal Musculoskeletal: Reports muscle weakness, Denies myalgias Integumentary: Denies pruritus, Denies rash, Denies wounds Neurological: Denies aphasia, Denies change in mentation, Denies change in speech, Denies numbness, Denies seizures, Denies weakness Psychiatric: Denies anxiety, Denies depression Endocrine: Denies fatigue, Denies weight change Physical Examination Gen: This is a frail cachectic appearing 79-year-old female. Patient is resting but appears to be comfortable and in no acute distress. HEENT: Head is atraumatic, normocephalic. Pupils equal, round. Sclerae is anicteric. NECK: Supple. No JVD. No lymphadenopathy. No thyromegaly. LUNGS: Diminished dorsalis pedis +2 bilaterally.. No wheezes or rhonchi. No intercostal retractions. HEART: Regular rate and rhythm. No murmur. ABDOMEN: Soft. Bowel sounds are present. No masses. No tenderness. PEG tube in place, site clean and dry. EXTREMITIES: No pedal edema. No calf tenderness. NEUROLOGICAL: Patient is awake, alert and oriented to person and place. Cranial nerves 2 through 12 are grossly intact. - Labs CBC & Chem 7: 06/04/20 07:44 06/04/20 07:44 Labs: Abnormal Lab Results - Last 24 Hours (Table) 06/03/20 06/03/20 06/03/20 Range/Units 06:56 09:05 09:05 Lymphocytes # 0.6 L (1.0-4.8) k/uL Sodium 133 L (137-145) mmol/L Chloride 95 L (98-107) mmol/L Carbon Dioxide 32 H (22-30) mmol/L Creatinine 0.21 L (0.52-1.04) mg/dL Glucose 122 H (74-99) mg/dL POC Glucose (mg/dL) 139 H (75-99) mg/dL Total Protein 5.8 L (6.3-8.2) g/dL Albumin 3.2 L (3.5-5.0) g/dL 06/03/20 06/03/20 06/03/20 Range/Units 11:10 16:26 20:34 Lymphocytes # (1.0-4.8) k/uL Sodium (137-145) mmol/L Chloride (98-107) mmol/L Carbon Dioxide (22-30) mmol/L Creatinine (0.52-1.04) mg/dL Glucose (74-99) mg/dL POC Glucose (mg/dL) 111 H 160 H 129 H (75-99) mg/dL Total Protein (6.3-8.2) g/dL Albumin (3.5-5.0) g/dL Microbiology - Last 24 Hours (Table) 05/30/20 18:22 Blood Culture - Preliminary Blood No Growth after 96 hours Assessment and Plan Assessment: Assessment and Plan Plan: 1. Sepsis secondary to left lower lobe pneumonia, possible gram-negative pneumonia. Continue Zosyn and vancomycin pharmacy to dose his peak and trough, Covid-19 still pending, blood cultures are pending. 2. Hypovolemic hyponatremia.. Continue decrease IV fluid normal saline at 50 mL per hour. Repeat CMP tomorrow morning. 3. 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 Continue with tube feeding a 6 mL per hour. Continue Remeron 15 mg orally once every day. 4. Gastroesophageal reflux disease. Continue Pepcid 40 mg daily. 5. Recurrent depression. Continue Remeron 15 mg at bedtime. 6. GI prophylaxis. Pepcid 40 mg orally once every day. 7. DVT prophylaxis. Heparin 5000 units subcu every 8 hours. 8. Medical debility. PT consult. 9. Urinary frequency without evidence of UTI. Start the patient on bethanechol and 25 mg orally 3 times a day as well as Pyridium 100 mg orally 3 times every day. 10. repeated chest x-ray showed residual retrocardiac infiltrate we will continue IV antibiotic. We will switch to oral antibiotic tomorrow morning. 11. Home with PT tomorrow morning.
[2020-06-04 15:05] VITALS: BMI 17.8
[2020-06-04 16:59] LABS: Glucose,Whole Blood 138 mg/dL (75-99)
[2020-06-04] MEDS: MIRTAZAPINE 15 MG TAB PO SCH (19:57)
[2020-06-04] MEDS: ACETAMINOPHEN TAB 325 MG TAB PO PRN (20:13)
[2020-06-04 20:30] LABS: Glucose,Whole Blood 117 mg/dL (75-99)
[2020-06-05] MEDS: SODIUM CHLORIDE 0.9% 1,000 ML IV SCH (03:24)
[2020-06-05] MEDS: PIPERACILLIN-TAZOBACTAM 3.375 GM in SODIUM CHLORIDE 0.9% 100 ML IVPB SCH (03:25)
[2020-06-05 06:55] LABS: Glucose,Whole Blood 136 mg/dL (75-99)
--- NOTE | 2020-06-05 08:24 | P.DS ---
Providers Date of admission: 05/30/20 17:34 Expected date of discharge: 06/05/20 Attending physician: Melissa Corcoran Consults: 05/31/20 03:57 Consult Physician Routine Consulting Provider: Yanelis Jay Consult Reason/Comments: hyponatremia Do you want consulting provider notified?: Yes, Notify in am Primary care physician: Melissa Corcoran Hospital Course: This is a 79-year-old female patient of Dr. Corcoran currently residing at [facility] for subacute rehab with past medical history of diabetes mellitus type 2, gastroesophageal reflux disease, generalized osteoarthritis, diabetic neuropathy. 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 Patient was started on Remeron and had PEG tube placed on May 10 and was started on PEG tube feedings. Patient was discharged to [facility] at that time. At the facility she was complaining of feeling nauseated without vomiting. Chills without fever. She did not productive cough. No chest pain or abdominal pain. Patient apparently has not been tolerating feedings through the PEG tube. Patient was found to be febrile at 102.8, heart rate 106, blood pressure 174/84, pulse ox 94% on room air. EKG was sinus tachycardia with no acute ST changes. WBC 10.6, hemoglobin 12.7, platelet count 339. Sodium 122, potassium 4.2, chloride 84, CO2 30, BUN 17 and creatinine 0.17, blood sugar 164. Lactic acid 1.7. Urinalysis turbid, glucose trace, leukoesterase small. KUB revealed nonacute abdomen. Chest x-ray revealed new mild left lower lobe pneumonia. New small pleural effusion. No heart failure. Patient was initially admitted to [facility] and care was transitioned to Dr. Corcoran. 05/31: Patient has been afebrile overnight, heart rate 69, blood pressure 106/52, pulse ox 92% on room air. Repeat blood work reveals WBC 7.3, hemoglobin 10.4, platelet count 276. Sodium 127, potassium 3.7, chloride 95, CO2 30, BUN 12 and creatinine less than 0.15. Blood sugar 98. Patient is currently on IV antibiotics the form of Zosyn and vancomycin. Nephrology is following for hyponatremia. Patient is currently on IV fluids 0.9 normal saline at 70 mL per hour. PEG tube feedings have been resumed. She has been seen by dietitian with recommendations for Jevity continuous feedings with initial rate of 30, increase 15 ML's every 8 hours for goal of 60 ML's per hour with 30 mL water flushes every 4 hours. Case management has discussed discharge planning with the patient and patient does not want to return to [facility]. She normally lives at [facility] and would like to go to her daughter's home at the time of discharge. Daughter discussed with casework supervisor. DME ordered. 06/01: Patient is complaining of increased urinary frequency as well as dysuria she has no fever or chills with the last 24 hours, she is maintained on IV fluid normal saline at 70 mL an hour along with her to feeding at 60 ML per hour along with the water flushes, we will decrease her IV fluid to 50 mL per hour, check a urinalysis and culture, she will be maintained on gentamicin and Zosyn for now, patient denies any chest pain at this time she has no shortness breath, she has no abdominal pain, she seems to be tolerating her treatment very well. 06/02: Patient is laying down in bed in no apparent distress, she had not slept well yesterday because of increased urinary frequency, she has a bit of dysuria her urinalysis totally normal, decrease her IV fluid only to KVO, start the patient on Pyridium 100 mg orally 3 times every day, we will start the patient on bethanechol 25 mg orally 3 times every day to try to help reducing the overactive bladder, she is not a good candidate for anticholinergics due to the risk of fall as well as her dry mouth and tremors. 06/03: Patient is doing better today, less urinary frequency, no chest pain or shortness of breath, slept better last night, still gettibg Tube feeding and IV antibiotics, we will repeat CXR today. 06/04:patient is doing much better today she is emulating using her walker, she is trying to eat some soft diet, she continues into feeding, she denies any abdominal pain, she has no urinary frequency, most likely she will be discharged home tomorrow morning with physical therapy. discharge diagnoses: 1. Sepsis secondary to left lower lobe pneumonia, possible gram-negative pne umonia.. 2. Hypovolemic hyponatremia. 3. 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 . 4. Gastroesophageal reflux disease. 5. Recurrent depression. Patient Condition at Discharge: Stable Plan - Discharge Summary New Discharge Prescriptions: No Action Acetaminophen Tab [Tylenol] 500 mg PO Q6H PRN PRN Reason: Pain Cyanocobalamin [Vitamin B-12] 1,000 mcg PO DAILY@0900 Famotidine 40 mg PO DAILY@0900 Jevity 1.5 Clemente Liquid 237 ml PO QID Magnesium Oxide [Mag-Ox] 400 mg PO DAILY@09 Mirtazapine [Remeron] 15 mg PO HS@2100 Thiamine [Vitamin B-1] 100 mg PO DAILY@0900 Discharge Medication List Acetaminophen Tab [Tylenol] 500 mg PO Q6H PRN 08/21/18 [History] Cyanocobalamin [Vitamin B-12] 1,000 mcg PO DAILY@0905/30/20 [History] Famotidine 40 mg PO DAILY@0905/30/20 [History] Jevity 1.5 Clemente Liquid 237 ml PO QID 05/30/20 [History] Magnesium Oxide [Mag-Ox] 400 mg PO DAILY@89905/30/20 [History] Mirtazapine [Remeron] 15 mg PO HS@2100 05/30/20 [History] Thiamine [Vitamin B-1] 100 mg PO DAILY@89905/30/20 [History] Follow up Appointment(s)/Referral(s): [facility], [NON-STAFF] - As Needed Melissa Corcoran MD [Primary Care Provider] - 1-2 days [facility], [REFERRING] - As Needed
[2020-06-05] MEDS: HEPARIN SODIUM,PORCINE 5,000 UNIT/ML 1 ML VIAL SQ SCH (08:32)
[2020-06-05] MEDS: BETHANECHOL 25 MG TAB PO SCH (08:32)
[2020-06-05] MEDS: PHENAZOPYRIDINE 100 MG TAB PO SCH (08:32)
[2020-06-05] MEDS: FAMOTIDINE 20 MG TAB PO SCH (08:32)
[2020-06-05 08:46] VITALS: BP 151/75; PULSE 82; RESP 18; TEMP 98.5
[2020-06-05] MEDS ORDERED: AMOXIC-POT CLAV 200-28.5MG/5ML 100 ML BOTTLE PO SCH (09:00)
[2020-06-05] MEDS ORDERED: VANCOMYCIN TROUGH DUE 1 EACH MISC MISCELLANE ONE (09:00)
== END 2020-06-05 12:34 | disposition home or self-care (01) | DRG 871 ==
LOC: EC 15:22 → 4SSUR 17:34
PROVIDERS: ADMIT Internal Medicine; ATTEND Internal Medicine
DX: A41.50 Gram-negative sepsis, unspecified (principal); G93.41 Metabolic encephalopathy; E43 Unspecified severe protein-calorie malnutrition; J18.9 Pneumonia, unspecified organism; R64 Cachexia; E87.1 Hypo-osmolality and hyponatremia; Z68.1 Body mass index [BMI] 19.9 or less, adult; F33.9 Major depressive disorder, recurrent, unspecified; F41.9 Anxiety disorder, unspecified; K21.9 Gastro-esophageal reflux disease without esophagitis; M19.90 Unspecified osteoarthritis, unspecified site; E11.40 Type 2 diabetes mellitus with diabetic neuropathy, unspecified; M41.9 Scoliosis, unspecified; R62.7 Adult failure to thrive; R53.81 Other malaise; E83.42 Hypomagnesemia; Z20.828 Contact with and (suspected) exposure to other viral communicable diseases; R40.2362 Coma scale, best motor response, obeys commands, at arrival to emergency department; R40.2142 Coma scale, eyes open, spontaneous, at arrival to emergency department; R40.2252 Coma scale, best verbal response, oriented, at arrival to emergency department; R13.13 Dysphagia, pharyngeal phase; E86.1 Hypovolemia; D64.9 Anemia, unspecified; R30.0 Dysuria; R35.0 Frequency of micturition; Y95 Nosocomial condition; Z79.899 Other long term (current) drug therapy; Z88.6 Allergy status to analgesic agent; Z91.81 History of falling; Z88.1 Allergy status to other antibiotic agents; Z88.5 Allergy status to narcotic agent; Z88.8 Allergy status to other drugs, medicaments and biological substances; Z93.1 Gastrostomy status; Z80.51 Family history of malignant neoplasm of kidney; Z80.42 Family history of malignant neoplasm of prostate; Z81.2 Family history of tobacco abuse and dependence; Z87.19 Personal history of other diseases of the digestive system; Z98.890 Other specified postprocedural states
CPT/HCPCS: 36415; 71045; 71046; 74018; 80048; 80053; 80202; 81001; 81003; 83605; 83690; 83735; 85025; 85027; 87040; 93005; 96361; 96365; 96375; 99285